=== PATIENT | male | born 1975 | race Caucasian/White ===

== ENCOUNTER 2022-03-22 12:00 | Inpatient (IN) | payer OTHER, SELFPAY ==
[2022-03-22] VITALS (25 sets, daily range): BP systolic 131–193; BP diastolic 63–133; PULSE 69–85; RESP 13–26; TEMP 36.4–36.8; O2SAT 94–99
--- NOTE | 2022-03-22 12:01 | ECG_ITS ---
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 Measurements Intervals [place] Rate: 69 P: -3 [place]: 137 QRS: 13 QRSD: 95 T: 53 QT: 351 QTc: 378 Interpretive Statements SINUS RHYTHM INTERPRETATION BASED ON A DEFAULT AGE OF 40 YEARS No previous ECG available for comparison Electronically Signed On 03-22-2022 15:19:32 DIRECTOR OF RESIDENTIAL SERVICES by Thomas Simmons M.D. [email or web address] [id number] f
--- NOTE | 2022-03-22 12:01 | XRR_ITS ---
PROCEDURE INFORMATION: Exam: XR Chest Exam date and time: 03/22/2022 12:29 PM Age: 46 years old Clinical indication: Pain; Chest pressure; Additional info: Chest pain TECHNIQUE: Imaging protocol: Radiologic exam of the chest. Views: 1 view. COMPARISON: No relevant prior studies available. FINDINGS: Lungs: Decreased lung volumes which may be due to body habitus. No consolidation. Pleural spaces: Unremarkable. No pleural effusion. No pneumothorax. Heart/Mediastinum: Cardiac silhouette is mildly enlarged on this portable chest. Bones/joints: Unremarkable for age. XR/XR chest 1V portable [id number] IMPRESSION: Mild cardiomegaly. Decreased lung volumes otherwise negative chest.
--- NOTE | 2022-03-22 12:09 | ED_ITS ---
Documented by User: BRAD Zuluaga 03/22/22 15:22 HPI - Chest Pain General: Chief Complaint: Chest Pain Stated Complaint: cp Time Seen by Provider: 03/22/22 12:00 Source: patient Mode of arrival: ambulatory Limitations: no limitations History of Present Illness: Patient is a 46-year-old male with no known medical problems here for complaints of chest pain that he initially noticed yesterday. 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 States pain was located substernally with no radiation. He states it seemed to wax and wane throughout the day and by that evening had pretty much resolved. Patient states he does not remember having any discomfort during the night and seemed to sleep okay. He states this morning when he was again feeding he noticed discomfort thus prompting his ED visit. Upon arrival to the ED vitals are stable apart from hypertension at 175/110. Patient denies history of high blood pressure though admittedly does not check it at home. He does not complain of shortness of breath or difficulty breathing currently but states he did feel a little winded when he was feeding earlier. 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 He is currently rating pain at a 3/10. No history of GERD/acid reflux. No swelling to LE/edema. No risk factors for PE. MD complaint: chest pain Onset (ago): day(s) (yesterday) Timing of current episode: episodic Prior episodes: No Pain location: substernal Pain radiation: none Severity: mild Pain scale (0-10): 3 Quality: heaviness Relieving factors: nothing Associated symptoms: Reports dyspnea (resolved now); Deny abdominal pain, fever(s), nausea, palpitations, syncope or vomiting Treatment prior to arrival: none Risk Factors: Coronary artery disease risk factors: none Thoracic aortic dissection risk factors: none Review of Systems Const: Denies: fever(s), chills, body aches, fatigue or malaise Card: Reports: chest pain and dyspnea on exertion; Denies: palpitations, irregular heart rhythm, edema, swelling of feet/ankles, lightheadedness, syncope, pre-syncope, orthopnea, leg pain with exertion or acrocyanosis Resp: Reports: dyspnea (resolved now); Denies: productive cough, non-productive cough, wheezing, pain on inspiration, hemoptysis or chest congestion GI: Denies: abdominal pain, nausea, vomiting or diarrhea Musc: Denies: neck pain, back pain, extremity pain, extremity swelling, joint pain or joint swelling Skin/Breast: Denies: rash Neuro: Denies: headache(s), numbness in extremities, weakness in extremities, sensory changes or dizziness PFS ED PFSH: Medical History (Updated 03/25/22 @ 00:00 by JOHN Morfin) Dyslipidemia Elevated troponin No pertinent past medical history Sleep apnea Surgical History (Updated 03/22/22 @ 15:34 by Osbaldo Hale MD) No pertinent past surgical history Family History (Updated 03/22/22 @ 15:35 by Osbaldo Hale MD) Mother Hypertension Father Hypertension Social History (Updated 03/22/22 @ 15:34 by Osbaldo Hale MD) Smoking and tobacco status: never smoked Alcohol intake: current Alcohol intake frequency: holidays/special occasions only Physical Exam Const: COMMON NORMALS: no acute distress, patient oriented x3, no limitations and alert GENERAL APPEARANCE: cooperative NUTRITIONAL APPEARANCE: overweight ORIENTATION/CONSCIOUSNESS: Yes awake, Yes oriented to person, Yes oriented to place and Yes oriented to time HENMT: COMMON NORMALS: normocephalic and atraumatic HEAD & SCALP: normal to inspection, normocephalic and atraumatic Neck/C-Spine: COMMON NORMALS: full ROM, no lymphadenopathy, supple and no meningeal signs Chest: COMMONS NORMALS: normal inspection of the chest and normal palpation of entire chest wall Resp: COMMON NORMALS: normal respiratory effort and clear to auscultation bilaterally AUSCULTATION: clear to auscultation bilaterally Cardio: COMMON NORMALS: regular rate and regular rhythm RATE: regular rate RHYTHM: regular rhythm GI: COMMON NORMALS: Normal to inspection, nondistended, normoactive bowel sounds present, Soft to palpation, non-tender and no masses PALPATION: Yes Soft to palpation : COMMON NORMALS: Yes no CVA tenderness BLADDER/KIDNEY EXAM: Yes no CVA tenderness Back/Pelvis: COMMON NORMALS: no CVA tenderness, thoracic and lumbar spine normal to inspection, no thoracic nor lumbar tenderness and thoraco-lumbar ROM normal Extremity: COMMON NORMALS: normal to inspection, full ROM, capillary refill normal, no joint enlargement, no clubbing, cyanosis or edema, no calf tenderness and no pedal edema GENERAL: Yes normal exam except as noted Neuro: FRANCES COMA SCALE: document GCS findings [place] coma scale eye opening: Spontaneous Frances coma scale verbal response: Orientated Frances coma scale motor response: Obey commands [place] coma scale total score: 15 COMMON NORMALS: patient oriented x3, moves all extremities, no focal motor deficits, no sensory deficits noted and gait normal SENSORIUM/ORIENTATION: Yes alert, Yes oriented to person, Yes oriented to place and Yes oriented to time MENINGEAL SIGNS: Yes no meningeal signs Skin: COMMON NORMALS: no rashes or lesions noted GENERAL SKIN EXAM: no rashes or lesions noted Course Consultations: Consultation #1: Dr. Hale-recommends speaking to Dr. Simmons about need for catheterization Consultation #2: Dr. Simmons-does not recommend cath; recommends hospital admission/medication management and eventually stress testing Vital Signs: Vital signs: Vital Signs Temperature 97.7 F 03/24/22 09:59 Pulse Rate 69 03/24/22 11:29 Respiratory Rate 23 H 03/24/22 11:29 Blood Pressure 127/67 03/24/22 11:29 Pulse Oximetry 96 03/24/22 11:29 Oxygen Delivery Me thod 03/24/22 11:29 Oxygen Flow Rate 3 03/23/22 13:03 MDM - Chest Pain Medical Decision Making Patient is a nice 46-year-old male who presents to ED today for exertional related chest pains. EKG upon arrival was normal. His initial baseline troponin is 41. Repeat EKG showing an inverted T wave in lead III. 2-hour troponin is 76 so a delta of 35. Patient arrived to the ED significantly hypertensive. This has been lowered successfully. He has been given nitro. Upon reassessment patient is not having any active chest pain. I have spoken to hospitalist and agriculture extension specialist and we will admit patient. Dr. Rodriguez aware of patient and agrees with care plan/decision to admit. Lab Data 03/22/22 12:05 03/22/22 12:05 Radiology Impressions Chest X-Ray 03/22/22 12:01 IMPRESSION: Mild cardiomegaly. Decreased lung volumes otherwise negative chest. Laboratory Results WBC 8.3 10^3/uL (4.0-10.0) 03/22/22 12:05 RBC 5.66 10^6/uL (4.1-5.3) H 03/22/22 12:05 Hgb 15.7 g/dL (11.7-16.6) 03/22/22 12:05 Hct 48.6 % (42.0-52.0) 03/22/22 12:05 MCV 85.9 fl (80-94) 03/22/22 12:05 MCH 27.7 pg (28.0-34.0) L 03/22/22 12:05 MCHC 32.3 g/dL (30.0-36.0) 03/22/22 12:05 RDW 12.5 % (12.1-15.1) 03/22/22 12:05 Plt Count 310 10^3/cmm (130-400) 03/22/22 12:05 MPV 9.8 fL (7.4-10.4) 03/22/22 12:05 Neut % (Auto) 58.7 % 03/22/22 12:05 Lymph % (Auto) 29.3 % 03/22/22 12:05 [place] % (Auto) 7.6 % 03/22/22 12:05 Eos % (Auto) 3.5 % 03/22/22 12:05 Baso % (Auto) 0.7 % 03/22/22 12:05 Neut # (Auto) 4.85 10^3/uL (1.8-7.7) 03/22/22 12:05 Lymph # (Auto) 2.4 10^3/uL (0.8-4.8) 03/22/22 12:05 [place] # (Auto) 0.6 10^3/uL (0.2-0.9) 03/22/22 12:05 Eos # (Auto) 0.3 10^3/uL (0.0-0.8) 03/22/22 12:05 Baso # (Auto) 0.1 10^3/uL (0.0-0.1) 03/22/22 12:05 Nucleated RBC % (auto) 0 % 03/22/22 12:05 Nucleated RBCs # 0.0 /100WBC 03/22/22 12:05 Sodium 136 mmol/L (136-145) 03/22/22 12:05 Potassium 4.3 mmol/L (3.5-5.1) 03/22/22 12:05 Chloride 98 mmol/L (98-107) 03/22/22 12:05 Carbon Dioxide 27 mmol/L (22-29) 03/22/22 12:05 Anion Gap 15.3 (5-19) 03/22/22 12:05 BUN 12 mg/dL (6-20) 03/22/22 12:05 Creatinine 0.9 mg/dL (0.7-1.2) 03/22/22 12:05 GFR Calculation 90.4 mL/min (90-130) 03/22/22 12:05 Glucose 102 mg/dL (65-115) 03/22/22 12:05 Calculated Osmolality 282 mOsm/kg (285-295) L 03/22/22 12:05 Calcium 9.8 mg/dL (8.5-10.5) 03/22/22 12:05 Total Bilirubin 0.3 mg/dL (0.15-1.2) 03/22/22 12:05 AST 23 U/L (0-40) 03/22/22 12:05 ALT 41 U/L (0-41) 03/22/22 12:05 Alkaline Phosphatase 80 U/L (40-130) 03/22/22 12:05 Troponin T Baseline 41 ng/L (0-15) H 03/22/22 12:05 Troponin T 120 Minute 76.26 ng/L (0-15) H 03/22/22 14:31 Delta Troponin T 35.26 ABS# (0-10) H* 03/22/22 14:31 NT-Pro-B Natriuret Pep 58 pg/mL (0-125) 03/22/22 12:05 Total Protein 7.6 g/dL (6.6-8.7) 03/22/22 12:05 Albumin 4.9 g/dL (3.5-5.2) 03/22/22 12:05 Globulin 2.7 g/dL (1.3-4.6) 03/22/22 12:05 EKG Data EKG 1: EKG interpretation date: 03/22/22 EKG interpretation time: 12:04 Prior EKG tracings: not available for review Interpretation: Sinus rhythm Rate [address] elevation or depression changes noted Discharge Plan Discharge Patient Disposition: Admitted As Inpatient Admit Provider: Osbaldo Hale Clinical Impression: Acute non-ST elevation myocardial infarction (NSTEMI) Condition: Stable Discharge Diet: Cardiac and Diabetic Discharge Activity: Increase activity as tolerated, Limit activity as instructed and Cpap/Bipap as instructed Coding Level of Care Code ED Speech Instructor for Rony Fwd Documented by User: Collins Rodriguez MD 04/01/22 02:40 HPI - Chest Pain General: Chief Complaint: Chest Pain Stated Complaint: cp Time Seen by Provider: 03/22/22 12:00 [facility] ED PFSH: Medical History (Updated 03/25/22 @ 00:00 by JOHN Morfin) Dyslipidemia Elevated troponin No pertinent past medical history Sleep apnea Surgical History (Updated 03/22/22 @ 15:34 by Osbaldo Hale MD) No pertinent past surgical history Family History (Updated 03/22/22 @ 15:35 by Osbaldo Hale MD) Mother Hypertension Father Hypertension Social History (Updated 03/22/22 @ 15:34 by Osbaldo Hale MD) Smoking and tobacco status: never smoked Alcohol intake: current Alcohol intake frequency: holidays/special occasions only Physical Exam Neuro: FRANCES COMA SCALE: document GCS findings Frances coma scale total score: 15 Course Vital Signs: Vital signs: Vital Signs Temperature 97.7 F 03/24/22 09:59 Pulse Rate 69 03/24/22 11:29 Respiratory Rate 23 H 03/24/22 11:29 Blood Pressure 127/67 03/24/22 11:29 Pulse Oximetry 96 03/24/22 11:29 Oxygen Delivery Me thod 03/24/22 11:29 Oxygen Flow Rate 3 03/23/22 13:03 MDM - Chest Pain Medical Decision Making Patient is a nice 46-year-old male who presents to ED today for exertional related chest pains. EKG upon arrival was normal. His initial baseline troponin is 41. Repeat EKG showing an inverted T wave in lead III. 2-hour troponin is 76 so a delta of 35. Patient arrived to the ED significantly hypertensive. This has been lowered successfully. He has been given nitro. Upon reassessment patient is not having any active chest pain. I have spoken to hospitalist and agriculture extension specialist and we will admit patient. Dr. Rodriguez aware of patient and agrees with care plan/decision to admit. I discussed this case with BRAD Zuluaga. I reviewed laboratory studies, i shantal, documentation. Collins Rodriguez MD Emergency Medicine Lab Data 03/22/22 12:05 03/22/22 12:05 Radiology Impressions Chest X-Ray 03/22/22 12:01 IMPRESSION: Mild cardiomegaly. Decreased lung volumes otherwise negative chest. Laboratory Results WBC 8.3 10^3/uL (4.0-10.0) 03/22/22 12:05 RBC 5.66 10^6/uL (4.1-5.3) H 03/22/22 12:05 Hgb 15.7 g/dL (11.7-16.6) 03/22/22 12:05 Hct 48.6 % (42.0-52.0) 03/22/22 12:05 MCV 85.9 fl (80-94) 03/22/22 12:05 MCH 27.7 pg (28.0-34.0) L 03/22/22 12:05 MCHC 32.3 g/dL (30.0-36.0) 03/22/22 12:05 RDW 12.5 % (12.1-15.1) 03/22/22 12:05 Plt Count 310 10^3/cmm (130-400) 03/22/22 12:05 MPV 9.8 fL (7.4-10.4) 03/22/22 12:05 Neut % (Auto) 58.7 % 03/22/22 12:05 Lymph % (Auto) 29.3 % 03/22/22 12:05 [place] % (Auto) 7.6 % 03/22/22 12:05 Eos % (Auto) 3.5 % 03/22/22 12:05 Baso % (Auto) 0.7 % 03/22/22 12:05 Neut # (Auto) 4.85 10^3/uL (1.8-7.7) 03/22/22 12:05 Lymph # (Auto) 2.4 10^3/uL (0.8-4.8) 03/22/22 12:05 [place] # (Auto) 0.6 10^3/uL (0.2-0.9) 03/22/22 12:05 Eos # (Auto) 0.3 10^3/uL (0.0-0.8) 03/22/22 12:05 Baso # (Auto) 0.1 10^3/uL (0.0-0.1) 03/22/22 12:05 Nucleated RBC % (auto) 0 % 03/22/22 12:05 Nucleated RBCs # 0.0 /100WBC 03/22/22 12:05 Sodium 136 mmol/L (136-145) 03/22/22 12:05 Potassium 4.3 mmol/L (3.5-5.1) 03/22/22 12:05 Chloride 98 mmol/L (98-107) 03/22/22 12:05 Carbon Dioxide 27 mmol/L (22-29) 03/22/22 12:05 Anion Gap 15.3 (5-19) 03/22/22 12:05 BUN 12 mg/dL (6-20) 03/22/22 12:05 Creatinine 0.9 mg/dL (0.7-1.2) 03/22/22 12:05 GFR Calculation 90.4 mL/min (90-130) 03/22/22 12:05 Glucose 102 mg/dL (65-115) 03/22/22 12:05 Calculated Osmolality 282 mOsm/kg (285-295) L 03/22/22 12:05 Calcium 9.8 mg/dL (8.5-10.5) 03/22/22 12:05 Total Bilirubin 0.3 mg/dL (0.15-1.2) 03/22/22 12:05 AST 23 U/L (0-40) 03/22/22 12:05 ALT 41 U/L (0-41) 03/22/22 12:05 Alkaline Phosphatase 80 U/L (40-130) 03/22/22 12:05 Troponin T Baseline 41 ng/L (0-15) H 03/22/22 12:05 Troponin T 120 Minute 76.26 ng/L (0-15) H 03/22/22 14:31 Delta Troponin T 35.26 ABS# (0-10) H* 03/22/22 14:31 NT-Pro-B Natriuret Pep 58 pg/mL (0-125) 03/22/22 12:05 Total Protein 7.6 g/dL (6.6-8.7) 03/22/22 12:05 Albumin 4.9 g/dL (3.5-5.2) 03/22/22 12:05 Globulin 2.7 g/dL (1.3-4.6) 03/22/22 12:05 Discharge Plan Discharge Patient Disposition: Admitted As Inpatient Admit Provider: Osbaldo Hale Clinical Impression: Acute non-ST elevation myocardial infarction (NSTEMI) Condition: Stable Discharge Diet: Cardiac and Diabetic Discharge Activity: Increase activity as tolerated, Limit activity as instructed and Cpap/Bipap as instructed Coding Level of Care Code ED Speech Instructor for Rony Palacios
[2022-03-22 12:13] LABS: Basophils # 0.1 10^3/uL (0.0-0.1); Basophils % 0.7 %; Eosinophils # 0.3 10^3/uL (0.0-0.8); Eosinophils % 3.5 %; Hematocrit 48.6 % (42.0-52.0); Hemoglobin 15.7 g/dL (11.7-16.6); Lymphocytes # 2.4 10^3/uL (0.8-4.8); Lymphocytes % 29.3 %; Mean Corpuscular HGB Conc 32.3 g/dL (30.0-36.0); Mean Corpuscular Hemoglobin 27.7 pg (28.0-34.0); Mean Corpuscular Volume 85.9 fl (80-94); Mean Platelet Volume 9.8 fL (7.4-10.4); Monocytes # 0.6 10^3/uL (0.2-0.9); Monocytes % 7.6 %; Neutrophils # 4.85 10^3/uL (1.8-7.7); Neutrophils % 58.7 %; Nucleated Red Blood Cells % 0 %; Platelet Count 310 10^3/cmm (130-400); Red Blood Count 5.66 10^6/uL (4.1-5.3); Red Cell Distribution Width 12.5 % (12.1-15.1); White Blood Count 8.3 10^3/uL (4.0-10.0)
[2022-03-22] MEDS: hyDRALAzine 20 mg/mL INJ 1 mL 10 MG IVP (12:16)
[2022-03-22 12:38] LABS: Troponin(5th) Baseline 41 ng/L (0-15)
[2022-03-22 12:39] LABS: Alanine Aminotransferase 41 U/L (0-41); Albumin Level 4.9 g/dL (3.5-5.2); Alkaline Phosphatase 80 U/L (40-130); Anion Gap 15.3 (5-19); Aspartate Amino Transferase 23 U/L (0-40); Blood Urea Nitrogen 12 mg/dL (6-20); Calcium 9.8 mg/dL (8.5-10.5); Carbon Dioxide 27 mmol/L (22-29); Chloride 98 mmol/L (98-107); Globulin 2.7 g/dL (1.3-4.6); Glomerular Filtration Rate 90.4 mL/min (90-130); Glucose 102 mg/dL (65-115); Osmolality Calculated 282 mOsm/kg (285-295); Potassium 4.3 mmol/L (3.5-5.1); Sodium 136 mmol/L (136-145); Total Bilirubin 0.3 mg/dL (0.15-1.2); Total Protein 7.6 g/dL (6.6-8.7)
[2022-03-22] MEDS: aspirin 81 mg Chew Tablet 324 MG PO (13:20)
[2022-03-22] MEDS: nitroglycerin 0.4 mg sublingual Tablet SUBLINGUAL (13:20)
[2022-03-22 13:32] LABS: NT Pro B Type Natriuretic Pept 58 pg/mL (0-125)
--- NOTE | 2022-03-22 14:01 | ECG_ITS ---
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 Measurements Intervals [place] Rate: 67 P: -12 VT: 137 QRS: 2 QRSD: 110 T: 9 QT: 376 QTc: 399 Interpretive Statements SINUS RHYTHM Compared to ECG 03/22/2022 14:16:30 No significant changes Electronically Signed On 03-23-2022 8:42:13 NURSE EMERGENCY ROOM by Thomas Simmons M.D. [id number]
[2022-03-22 14:56] LABS: Troponin 5 2HR 76.26 ng/L (0-15)
[2022-03-22 15:05] LABS: Troponin 5 2HR Delta 35.26 ABS# (0-10)
--- NOTE | 2022-03-22 15:30 | USCV_ITS ---
Ibrahima Pederson Age: 46 Gender: M : 1975 Exam Date: 03/22/2022 15:52 Ordering Phys: Osbaldo Hale MD Technologist: WALTER [place] [facility] [place]: nstemi BP: / HR: 82 Rhythm: Sinus Technical Quality: Suboptimal MEASUREMENTS (Male / Female) Normal Values 2D ECHO LV Diastolic Diameter PLAX 5.8 cm 4.2 - 5.9 / 3.9 - 5.3 cm LV Systolic Diameter PLAX 4.5 cm IVS Diastolic Thickness 0.7 cm 0.6 - 1.0 / 0.6 - 0.9 cm IVS Systolic Thickness 1.0 cm LVPW Diastolic Thickness 0.8 cm 0.6 - 1.0 / 0.6 - 0.9 cm LVPW Systolic Thickness 1.0 cm LVOT Diameter 2.3 cm LV Ejection Fraction 2D Teich 41.9 % LV Ejection Fraction MOD 2C 64.3 % LV Ejection Fraction 2C AL 64.2 % LA Diameter 4.2 cm IVC Diameter 1.4 cm M-MODE Aortic Annulus Diameter 2.7 cm LA Ao Ratio MM 1.6 MV E Point Septal Separation 0.6 cm DOPPLER AV Peak Velocity 123.0 cm/s LVOT Peak Velocity 105.0 cm/s AV Area Cont Eq vti 3.5 cm squared AV Area Cont Eq pk 3.4 cm squared MV Area PHT 3.9 cm squared Mitral E to A Ratio 0.9 MV E' Velocity 53.0 cm/s Mitral E to MV E' Ratio 13.8 Mitral E to LV E' Lateral Ratio 12.3 Mitral E to LV E' Septal Ratio 16.1 TR Peak Velocity 150.0 cm/s TR Peak Gradient 9.0 mmHg Right Atrial Pressure 3.0 mmHg Pulmonary Artery Systolic Pressu 12.0 mmHg PV Peak Velocity 108.0 cm/s FINDINGS Left Ventricle Normal left ventricular size, systolic function and wall thickness, with no regional wall motion abnormalities. Normal left ventricular wall thickness. Normal diastolic filling pattern. Right Ventricle The right ventricle is normal in size and function. Normal right ventricular systolic pressure. Right Atrium The right atrium is normal in size. Left Atrium The left atrium is normal in size. Mitral Valve Structurally normal mitral valve without significant stenosis or prolapse. There is no mitral regurgitation. Aortic Valve Structurally normal aortic valve without significant sclerosis or stenosis. There is no aortic regurgitation. Tricuspid Valve Structurally normal tricuspid valve without significant stenosis or regurgitation. Pulmonary artery systolic pressure is normal. Pulmonic Valve Pulmonic valve not well visualized. Pericardium Normal pericardium without effusion. Aorta Normal ascending aorta dimension. IVC The inferior vena cava appears normal. CONCLUSIONS Normal transthoracic echocardiogram. There are no prior echocardiogram studies to compare. Dr. Thomas Simmons MD (Electronically Signed) Final Date: 23 March 2022 08:33 S
--- NOTE | 2022-03-22 15:30 | PM.HP ---
Providers/Chief Complaint Chief Complaint: cp History of Present Illness Ibrahima Pederson is a 46 year old male with no significant past medical history, who presents to [facility] due to a 2-day history of chest pain. 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 He was given nitroglycerin, on route with improvement of his chest pain. Currently chest pain-free, work-up in the emergency room showed EKG no acute ST-T wave changes, troponin baseline was 41 with a 120-minute of 76.26 and a positive delta of 35.26, ER provider spoke to cardiology, no acute need for cardiac catheterization, hospitalist team was called for admission. During my examination patient is hypertensive blood pressure is 150s over 90s, heart rates in the 60s, 90% on room air alert oriented x3, currently chest pain-free Review of Systems Const: Denies: fever(s), fatigue or malaise Eyes: Denies: change in vision Card: Reports: chest pain Resp: Reports: dyspnea GI: Denies: abdominal pain, nausea or vomiting : Denies: flank pain Musc: Denies: neck pain or back pain Neuro: Denies: headache(s) or numbness in extremities Psych: Denies: anxiety Endo: Denies: polyuria Medications/Allergies Home Medications Medication Instructions Recorded Confirmed Last Taken Type No Known Home Medications 03/22/22 03/22/22 Unknown History Allergies Allergy/AdvReac Type Severity Reaction Status Date / Time No Known Allergies Allergy Verified 03/22/22 12:32 PFSH Acute PFSH: Medical History (Updated 03/22/22 @ 15:37 by Osbaldo Hale MD) No pertinent past medical history Surgical History (Updated 03/22/22 @ 15:34 by Osbaldo Hale MD) No pertinent past surgical history Family History (Updated 03/22/22 @ 15:35 by Osbaldo Hale MD) Mother Hypertension Father Hypertension Social History (Updated 03/22/22 @ 15:34 by Osbaldo Hale MD) Smoking and tobacco status: never smoked Alcohol intake: current Alcohol intake frequency: holidays/special occasions only Substance/Drug Use: never Vitals/I&O/Wt Last Vital Signs Temp 98.3 F 03/22/22 12:10 Pulse 76 03/22/22 15:00 Resp 13 03/22/22 15:00 BP 147/93 03/22/22 15:00 Pulse Ox 96 03/22/22 15:00 O2 Del Method 03/22/22 12:04 Weight last 48 hrs Weight 113.398 kg Physical Exam Const: COMMON NORMALS: no acute distress and patient oriented x3 HENMT: COMMON NORMALS: normocephalic HEAD & SCALP: normocephalic Eye: COMMON NORMALS: Equal, round and reactive pupils present and EOMs intact bilaterally Neck/C-Spine: COMMON NORMALS: no JVD Lymph: LYMPHATIC: no lymphadenopathy noted Resp: COMMON NORMALS: normal respiratory effort, No retractions, No use of accessory muscles and clear to auscultation bilaterally AUSCULTATION: clear to auscultation bilaterally Cardio: COMMON NORMALS: no JVD, regular rate, regular rhythm, S1 normal heart sound present and S2 normal heart sound present RATE: regular rate RHYTHM: regular rhythm HEART SOUNDS: S1 normal heart sound present and S2 normal heart sound present GI: COMMON NORMALS: Normal to inspection, nondistended, normoactive bowel sounds present, Soft to palpation, non-tender and no masses PALPATION: Yes Soft to palpation and Yes No hepatosplenomegaly present Extremity: COMMON NORMALS: no calf tenderness and no pedal edema Neuro: COMMON NORMALS: patient oriented x3, CN's II-XII intact bilaterally, moves all extremities and no focal motor deficits Psych: COMMON NORMALS: mental status grossly normal Data 03/22/22 12:05 03/22/22 12:05 A&P Assessment and plan (1) Acute non-ST elevation myocardial infarction (NSTEMI): (2) Hypertension: (3) Chest pain: (4) Goals of care, counseling/discussion: (5) Obesity: Plan Chest pain, NSTEMI Plan -Serial EKGs, serial troponins, telemetry monitoring -Monitor troponin trend -Nitro as needed for chest pain -Urine toxicology screen, TSH, mag, BMP -Cardiac echo -Continue Coreg for hypertension -Aspirin, statin -Heparin drip -Watch troponin trend, if it continues to go up or patient has recurrent chest pain, will need to again discuss with cardiology the possibility of coronary angiogram -Full code -SCDs and heparin for DVT prophylaxis Attestations Medical Necessity Statement*: Patient requires hospitalization, inpatient, greater than 2 minutes, for chest pain, NSTEMI Coding Level of Care Code 75134 Diagnoses Acute non-ST elevation myocardial infarction (NSTEMI) I21.4 Hypertension I10 Chest pain R07.9 Goals of care, counseling/discussion Z71.89 Obesity E66.9
[2022-03-22 16:58] LABS: Platelet Count 304 10^3/cmm (130-400)
[2022-03-22 17:30] LABS: Chol HDL Ratio 6.98 mg/dL (1.0-5.00); Cholesterol 279 mg/dL (0-200); HDL Cholesterol 40 mg/dL (60-100); LDL Cholesterol Calculated 213 mg/dL (50-129); LDL HDL Ratio 5.33 RATIO (0.00-3.22); NT Pro B Type Natriuretic Pept 76 pg/mL (0-125); Thyroid Stimulating Hormone 0.82 uIU/mL (0.27-4.20); Triglycerides 130 mg/dL (0-150)
[2022-03-22 17:43] LABS: Estmated Average Glucose 128; Hemoglobin A1C 6.1 % (4.0-6.0)
--- NOTE | 2022-03-22 18:01 | ECG_ITS ---
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 Measurements Intervals [place] Rate: 71 P: 21 VA: 143 QRS: 12 QRSD: 95 T: 9 QT: 359 QTc: 390 Interpretive Statements SINUS RHYTHM Compared to ECG 03/22/2022 12:04:24 No significant changes Electronically Signed On 03-22-2022 15:20:09 PHYSICS PROFESSOR by Thomas Simmons M.D. [id number]
[2022-03-22 18:34] LABS: Troponin 5 6HR 47.55 ng/L (0-15); Troponin 5 6HR Delta 6.55 ng/L (0-12)
[2022-03-22] MEDS: carvedilol 3.125 mg Tablet PO (18:50)
[2022-03-22 19:07] LABS: Amphetamines Screen Urine Negative (Negative); Barbiturates Screen Urine Negative (Negative); Benzodiazepines Screen Urine Negative (Negative); Cocaine Screen Urine Negative (Negative); Opiate Screen Urine Negative (Negative); PCP Screen Urine Negative (Negative); THC Screen Urine Negative (Negative)
[2022-03-22] MEDS: atorvastatin 40 mg Tablet PO (20:50)
[2022-03-22] MEDS: heparin 5,000 unit/mL INJ 1 mL IV (22:02)
[2022-03-22] MEDS: heparin drip 25,000 UNIT/500 ML PREMIX 32 UNIT IV (22:03)
[2022-03-22 22:33] LABS: Troponin T (5th) Once 44 ng/L (0-15)
[2022-03-23] VITALS (46 sets, daily range): BP systolic 101–183; BP diastolic 67–111; PULSE 7–95; RESP 12–25; TEMP 36.6–37.3; O2SAT 90–98
[2022-03-23 04:40] LABS: Basophils # 0.1 10^3/uL (0.0-0.1); Basophils % 0.8 %; Eosinophils # 0.4 10^3/uL (0.0-0.8); Eosinophils % 4.5 %; Hematocrit 46.2 % (42.0-52.0); Hemoglobin 14.6 g/dL (11.7-16.6); Lymphocytes # 3.1 10^3/uL (0.8-4.8); Lymphocytes % 35.2 %; Mean Corpuscular HGB Conc 31.6 g/dL (30.0-36.0); Mean Corpuscular Hemoglobin 27.3 pg (28.0-34.0); Mean Corpuscular Volume 86.5 fl (80-94); Mean Platelet Volume 9.8 fL (7.4-10.4); Monocytes # 0.8 10^3/uL (0.2-0.9); Neutrophils # 4.37 10^3/uL (1.8-7.7); Neutrophils % 50.2 %; Nucleated Red Blood Cells % 0 %; Platelet Count 306 10^3/cmm (130-400); Red Blood Count 5.34 10^6/uL (4.1-5.3); Red Cell Distribution Width 12.7 % (12.1-15.1); White Blood Count 8.7 10^3/uL (4.0-10.0)
[2022-03-23 05:03] LABS: Troponin T (5th) Once 41 ng/L (0-15)
[2022-03-23 05:06] LABS: Partial Thromboplastin Time 108.6 SECONDS (23.9-36.7)
[2022-03-23 05:09] LABS: Anion Gap 15.9 (5-19); Blood Urea Nitrogen 12 mg/dL (6-20); Carbon Dioxide 25 mmol/L (22-29); Chloride 98 mmol/L (98-107); Glomerular Filtration Rate 90.4 mL/min (90-130); Glucose 105 mg/dL (65-115); Magnesium 1.9 mg/dL (1.7-2.3); Osmolality Calculated 280 mOsm/kg (285-295); Phosphorus 3.8 mg/dL (2.5-4.5); Potassium 3.9 mmol/L (3.5-5.1); Sodium 135 mmol/L (136-145)
--- NOTE | 2022-03-23 08:18 | PM.CONSULT ---
Providers/Reason For Consult Consulting Physician/Specialty*: Cardiovascular medicine Reason for Consult*: Chest discomfort, elevated troponin Requesting Physician: Hospitalist Attending Physician: Osbaldo Hale MD History of Present Illness History of Present Illness Ibrahima Pederson is a 46 year old male who has no known history of coronary artery disease or heart disease. 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 He developed the sensation in his chest that he thought was heartburn. It was substernal and a burning sensation. No radiation, no shortness of breath and no diaphoresis. It went away after he stopped. The next day he was playing in a [employer] tournament and in mid tournament he had the sensation again. It went away after he finished. 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 He came in to the hospital. Upon his arrival he was free of pain. His EKGs are completely normal. His troponin was 41. The second was 76 and the third 47. His chest x-ray shows mild cardiomegaly. He is not a smoker. He is mildly overweight. He has hyperlipidemia and sleep apnea. He was hypertensive when he arrived. He has been placed on aspirin, statin, heparin, carvedilol. Review of Systems Narrative: Review of systems is negative Medications/Allergies Home Medications Medication Instructions Recorded Confirmed Last Taken Type No Known Home Medications 03/22/22 03/22/22 Unknown History Allergies Allergy/AdvReac Type Severity Reaction Status Date / Time No Known Allergies Allergy Verified 03/22/22 12:32 Current Medications Generic Name Dose Route Start Last Admin Trade Name Freq PRN Reason Stop Dose Admin Atorvastatin Calcium 40 mg 03/22/22 21:00 03/22/22 20:50 Atorvastatin 40 Mg Tablet PO 40 mg BEDTIME GIUSEPPE Administration Carvedilol 3.125 mg 03/22/22 18:00 03/22/22 18:50 Carvedilol 3.125 Mg Tablet PO 3.125 mg BID GIUSEPPE Administration Heparin Sodium (Porcine) 0 unit 03/22/22 16:00 03/22/22 22:02 Heparin 5,000 Unit/Ml Inj 1 Ml IV 5,800 unit PRN PRN Administration Heparin weight-base protocol Protocol Heparin Sodium/Sodium Chloride 25,000 unit in 500 mls @ 0 mls/hr 03/22/22 16:00 03/23/22 05:10 Heparin Drip IV 11.46 unit/kg/hr .Q0M GIUSEPPE 26 mls/hr Titration Protocol Per Protocol PFSH Acute PFSH: Medical History (Updated 03/23/22 @ 08:22 by Thomas Simmons MD) Dyslipidemia Elevated troponin No pertinent past medical history Sleep apnea Surgical History (Updated 03/22/22 @ 15:34 by Osbaldo Hale MD) No pertinent past surgical history Family History (Updated 03/22/22 @ 15:35 by Osbaldo Hale MD) Mother Hypertension Father Hypertension Social History (Updated 03/22/22 @ 15:34 by Osbaldo Hale MD) Smoking and tobacco status: never smoked Alcohol intake: current Alcohol intake frequency: holidays/special occasions only Substance/Drug Use: never Vitals/I&O/Wt Last Vital Signs Temp 98.3 F 03/23/22 04:00 Pulse 76 03/23/22 07:38 Resp 16 03/23/22 07:38 BP 130/67 03/23/22 07:38 Pulse Ox 98 03/23/22 07:38 O2 Del Method 03/23/22 07:38 03/22/22 03/23/22 03/23/22 22:59 06:59 14:59 Intake Total 227.733 / 227.733 Balance 227.733 / 227.733 Weight last 48 hrs Weight 256 lb 9.6 oz Weight 250 lb Physical Exam Narrative: GENERAL: In general he is awake and alert free of pain and in no distress. HEENT: Exam within normal limits. NECK: Supple without jugular vein distention. The carotid upstroke is normal without bruits. BACK: Exam normal. LUNGS: Clear. HEART: Regular rate and rhythm. ABDOMEN: Benign without organomegaly or tenderness. EXTREMITIES: No edema. NEUROLOGIC: Exam normal. SKIN: Unremarkable. Data 03/23/22 04:15 03/23/22 04:15 A&P Assessment and plan (1) Obesity: (2) Chest pain: (3) Hypertension: (4) Dyslipidemia: (5) Sleep apnea: (6) Elevated troponin: Plan The discomfort he is having is suspicious. His EKGs are completely normal however. There is only a minimal troponin elevation. He does have risk factors of hypertension and dyslipidemia. I think all things considered, especially given his line of work, coronary angiography is indicated to figure out whether he has coronary disease or not. Consult Attestations Medical Necessity Statement: Hospitalization for management of chest pain and elevated troponin. and Low Time for a total of Total time in patient care (in minutes): 25 minutes, includes reviewing past or interval history, examining/interviewing patient, placing orders, counseling patient/family/other support, discussing plan of care with staff and communicating with other healthcare providers Other Coding Information Procedural care (documented in another note) Diagnoses Obesity E66.9 Chest pain R07.9 Hypertension I10 Dyslipidemia E78.5 Sleep apnea G47.30 Elevated troponin R77.8
[2022-03-23] MEDS: pantoprazole DR 40 mg Tablet PO (08:41)
[2022-03-23] MEDS: sodium chloride 0.9% 1,000 ML 50 ML IV (08:55)
[2022-03-23] MEDS: carvedilol 3.125 mg Tablet PO (08:56)
[2022-03-23] MEDS: diphenhydrAMINE 50 mg Capsule PO (08:56)
--- NOTE | 2022-03-23 09:36 | XACV_ITS ---
Exam Room: [facility] Ht: 173 cm Wt: 117 kg BSA: 2.42 m2 Gender: Male : 1975 Any Known Allergies: No known allergies Exam Priority: Routine Procedure(s): Procedure Description: Diagnostic procedure Procedure Description: PCI procedure Procedure Description: Left Heart Catheterization Procedure Description: Left ventriculography Procedure Description: PTCA Procedure Description: Coronary Angiography Iris STAHL; Diagnostic Cath Status: Urgent Diagnostic Findings * Typical chest discomfort associated with exercise. Minimal troponin elevation. Hypertension and dyslipidemia. * Coronary angiography reveals left coronary artery dominance. The left main coronary artery is normal. The left anterior descending is a relatively small vessel and contains mild to moderate diffuse disease. The first diagonal is a moderate to large sized vessel with a 95% lengthy stenosis from the ostium through the proximal portion. The circumflex is the dominant vessel and contains mild diffuse disease. There is a small marginal branch distally which would be the third or fourth marginal branch which contains a 70 to 80% stenosis in its proximal portion. This is a very small vessel. The right coronary artery is a nondominant vessel and contains mild diffuse luminal irregularities. There is also a ramus intermedius artery which contains moderate to severe diffuse disease.. PCI Status: Urgent PCI LVEF Assessed: Yes PCI Indication: NSTE - ACS Interventional Findings * The first diagonal branch underwent angioplasty with some difficulty due to guide placement. I was unable to stent this vessel due to its proximity to the LAD. The other vessels did not undergo angioplasty due to the fact that they are quite small. The patient was hypertensive during the examination and procedure. There was some chest pain as well. Decision for PCI with Surgical Consult: No PCI for Multi-vessel Disease: No Conclusions 1. Diffuse disease mainly small vessel disease and branch artery disease. Angioplasty of the first diagonal branch. Recommendations * Aggressive risk factor control with blood pressure lowering and high-dose statin therapy. Interventional RX Recommendation: PCI w/o planned CABG Diagnostic RX Recommendation: PCI w/o planned CABG Anticoagulation: Heparin Ventriculography Ejection Fraction: 60.0 % Pressures Phase:Rest AO : 112 / 84 ( 99 ) @ 10:17:00 AM 97 / 72 ( 85 ) @ 10:19:00 AM 104 / 75 ( 89 ) @ 10:21:00 AM 143 / 81 ( 109 ) @ 10:26:00 AM 145 / 83 ( 111 ) @ 10:26:00 AM 165 / 96 ( 121 ) @ 10:38:00 AM 132 / 85 ( 107 ) @ 10:41:00 AM 137 / 88 ( 111 ) @ 10:46:00 AM 149 / 83 ( 110 ) @ 10:51:00 AM 148 / 86 ( 115 ) @ 10:55:00 AM LV : 170 / 4 / 23 @ 10:25:00 AM 160 / 3 / 30 @ 10:25:00 AM 155 / 3 / 28 @ 10:26:00 AM 157 / 1 / 27 @ 10:26:00 AM Valves Phase:DefaultPhase AV : 16.0 @ 11:08:58 AM 16.0 @ 11:08:58 AM AV Mean Gradient: 14.0 @ 11:08:58 AM Clinical Evaluation EBL: 5mL-10mL Procedural Details Pre-Procedure Time Out. Identified patient by full name and date of as verbalized by the patient/guarantor. Does the consent match the physician's order: Yes. Accurate & Complete Informed Consent: Yes. Inpatient/Outpatient History & Physical on Chart: Yes. If H&P is completed, is and addenduem needed: Yes; If yes, is the addendum complete: N/A. Visualize and Verify Site with Patient/Guarantor: N/A. Relevant Radiology Images available: Yes. Pre-op teaching completed and patient verbalized understanding. The risks, benefits, and alternatives of sedation and/or procedure were discussed by physician. The patient agrees to continue. Procedure started. [facility] Clinical Fraility Score: 3: Managing Well. Incident Commander Indications: ACS > 24 hours. Chest Pain Symptom Assessment: Atypical Angina. Current diagnosis: NSTEMI. PERRLA. 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 Lungs clear x 5 lobes. IV Site on Arrival: 18 gauge in the right anticubital. Current Diagnosis : NSTEMI. Physician arrived. Physician scrubbed in. Immediate Pre-Procedure Time Out. Correct Patient: Yes; Correct Procedure: Yes; Correct Site: Yes; Correct Patient Position: Yes; Correct Supplies: Yes; Dried Flammable Prep: Yes; Blood Products Available: N/A;. Lidocaine 1% infiltrated to the right radial. Arterial access obtained. A 6 uzbek TIG catheter in over wire. Multiple views taken of left coronary artery. Catheter redirected to the RCA. Multiple views taken of right coronary artery. Catheter out. A 6 uzbek Angled Pig catheter in over wire. EDP Sample taken: LV 170/4,23; HR: 61 BPM; SpO2: 98%. EDP Sample taken: LV 160/3,30; HR: 76 BPM; SpO2: 98%. LV gram performed in [place] @ 10 mL/second for a total of 30 mL. EDP Sample taken: LV 155/3,28; HR: 71 BPM; SpO2: 98%. Pullback taken: LV 157/1,27; AO 143/81(109); Mean: 14mmHg, Peak to Peak: 16mmHg, SEP: 21sec/min; HR: 74 BPM; SpO2: 98%. Catheter out. Family updated. 6 uzbek XB 3.5 guide catheter was inserted over the wire. Wire out. Glidewire inserted. [place] inserted and advanced to the diaganol. AB Trek 2.5x20mm balloon inserted and advanced to the Diag. Balloon and wire out. [place] inserted and advanced to the diaganol. Wire out. A new [place] wire inserted and advanced to the Diag. Patient's family updated. Inflation number : 1 A AB TREK 2.50X20 RX BALLOON was prepped and advanced across the 1st Diag , then inflated to 8 ALEJANDRO for 0:34 seconds. Results checked. Balloon out. Wire out. Guide catheter out. A TR Band was successful obtaining hemostatsis at the Right Radial artery insertion site. Post Procedure: Pulses reassessed and unchanged. PERRLA. 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 No VTE prophylaxis required. Medication's Wasted: Lidocaine 1% = 1 mL. Medication's Wasted: Nitro = 49.8 mg. Medication's Wasted: Heparin = 1000 units. Medication's Wasted: Other = Versed 1 mg Fentanyl 25mcg. Total IV fluids: 75 mL. Complications: None. Estimated blood loss: 5mL-10mL. Responsiveness - Normal response to verbal stimuli; alert and oriented, PERRLA. Airway - Unaffected, no intervention required; spontaneous ventilation. Circulation: W/N/L, pulses unchanged. Nausea/Vomiting: No. Vital chart was stopped. Procedure completed. Patient transferred by bed to 1st floor. Access Site Site: Right Radial artery Sheath Size: 6 Fr Hemostasis Method: TR Band Hemostasis Success: Successful Procedure Medications Start: 10:01 AM Stop: 10:01 AM Medication: Versed Amount: 1 mg Route: I.V. Start: 10:01 AM Stop: 10:01 AM Medication: Fentanyl Amount: 50 mcg Route: I.V. Start: 10:10 AM Stop: 10:10 AM Medication: Nitrogylcerin Amount: 200 mcg Route: I.A. Start: 10:12 AM Stop: 10:12 AM Medication: Versed 1 mg and Fentanyl 25 mcg Amount: 1 Route: I.V. Start: 10:15 AM Stop: 10:15 AM Medication: Heparin Amount: 5000 units Route: I.V. Start: 11:01 AM Stop: 11:01 AM Medication: Plavix Amount: 600 mg Route: P.O. I, the attending physician, have reviewed and verified all procedure medications. Yes, all medications given per verbal order History/Risk Factors Hypertension: Yes Dyslipidemia: Yes Peripheral Arterial Disease (PAD): No Myocardial Infarction (SC): No Obesity: Yes Renal Disease: No Tobacco Use: Never Prior Interventions PCI: No CABG: No Valve Surgery: No Report Signatures Finalized by Dr. Thomas Simmons MD on 03/23/2022 11:28 AM
[2022-03-23] MEDS: hyDRALAzine 20 mg/mL INJ 1 mL 10 MG IVP ×2 (11:40→12:42)
--- NOTE | 2022-03-23 12:05 | PM.MISC ---
Miscellaneous Note Note: Patient recently underwent coronary angiography and an angioplasty of the first diagonal branch was performed. He also has mild to moderate diffuse disease of the ramus intermedius artery as well as the very distal obtuse marginal branch. Upon his return to the floor from the coronary angiogram the patient's blood pressure spiked to 220/110. He then began to have chest pain. I gave him 10 mg of hydralazine about 15 minutes ago. Another twelve-lead EKG now shows some minimal ST segment depression in leads V1 as well as ST depression and some T wave inversion in leads III and aVF. My suspicion is that he has become so hypertensive that he is mildly diffusely ischemic in these areas. I have ordered for him to be started on intravenous nitroglycerin to decrease his blood pressure and relieve the angina. We will need to get a better handle on the blood pressure. I am going to order some morphine for the pain and hydralazine every 6 hours as needed for blood pressure. Additionally I am going to switch him over to metoprolol from carvedilol. We will follow him along today to relieve the discomfort. Other Coding Information Procedural care (documented in another note)
[2022-03-23] MEDS: morphine 4 mg/mL SDV 1 mL 2 MG IVP ×2 (12:42→20:41)
[2022-03-23 13:10] LABS: Partial Thromboplastin Time 39.9 SECONDS (23.9-36.7)
--- NOTE | 2022-03-23 13:14 | ECG_ITS ---
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 Measurements Intervals [place] Rate: 67 P: 36 WV: 149 QRS: 32 QRSD: 98 T: 72 QT: 389 QTc: 411 Interpretive Statements SINUS RHYTHM MARKED ST ELEVATION, CONSIDER INFERIOR INJURY [MARKED ST ELEVATION W/O NORMALLY INFLECTED T-WAVE IN II/aVF] ACUTE CA Compared to ECG 03/22/2022 16:31:28 ST (T wave) deviation now present Myocardial infarct finding now present Electronically Signed On 03-24-2022 11:23:58 SOURCING CONSULTANT by Carlton Jean M.D. [id number] f
--- NOTE | 2022-03-23 13:38 | PM.MISC ---
Miscellaneous Note Note: Bring in his blood pressure down with IV nitroglycerin and hydralazine the patient continued to have chest pain. An EKG just a few minutes ago now shows ST segment elevation inferiorly. That is opposite of the region that underwent angioplasty recently. His pain is significant. We will take him back to the cardiac catheterization laboratory immediately. I have updated his family. Other Coding Information Procedural care (documented in another note)
--- NOTE | 2022-03-23 13:49 | XACV_ITS ---
Exam Room: [facility] Ht: 173 cm Wt: 117 kg BSA: 2.42 m2 Gender: Male : 1975 Any Known Allergies: No known allergies Exam Priority: Routine Procedure(s): Procedure Description: PCI procedure Procedure Description: Drug Eluting Coronary Stent Procedure Description: PTCA Iris STAHL; Diagnostic Cath Status: Emergency Diagnostic Findings * Patient underwent angiography earlier today and had an angioplasty of the second diagonal branch. This was a fairly large vessel. He also has diffuse disease elsewhere. Shortly after arriving back to the floor he had hypertension with blood pressure of 230/120 then developed chest pain. Initial EKG showed some ST segment depression but no elevation. There were new findings in the inferior leads. I started him on hydralazine as necessary and nitroglycerin drip for his blood pressure. About 2 hours later he developed worsening chest pain. An EKG at that time showed ST segment elevation in the inferior leads. Therefore, he was brought back to the catheterization laboratory. * Angiography this time revealed a normal left main. He has a codominant system. The circumflex contains mild to moderate diffuse disease. In the very third most distal obtuse marginal branch which is a small vessel there is a 85 to 90% discrete stenosis. The ramus intermedius artery contains mild to moderate diffuse disease. The first diagonal contains 2 lesions in the proximal portion 150% and the other 70%. The diagonal branch intervened upon which is a second diagonal was closed at the ostium. The mid LAD contains a 50 to 60% stenosis. There is diffuse disease in all vessels. The right coronary artery exhibits mild to moderate diffuse disease. In the midportion there is a 40 to 50% stenosis. In the posterior left ventricular branch there is a 90% ostial stenosis. These findings were all there previously prior to the angioplasty of the second diagonal branch.. PCI Status: Emergency PCI LVEF Assessed: No PCI Indication: STEMI - Immediate PCI for STEMI Interventional Findings * There was a very tiny stump at the ostium of the occluded vessel. With some difficulty a wire was placed. Balloon angioplasty was performed which opened the vessel. This time I placed a 2.5 x 15 mm stent carefully placing the proximal portion of the stent just at the opening of the diagonal so as not to embarrass the flow to the LAD. A good angiographic result was obtained. Decision for PCI with Surgical Consult: No PCI for Multi-vessel Disease: No Conclusions 1. Stent thrombosis of a recently angioplastied second diagonal branch. The vessel was opened and stented without incident. Recommendations * Medical therapy now. Interventional RX Recommendation: PCI w/o planned CABG Diagnostic RX Recommendation: PCI w/o planned CABG Anticoagulation: Heparin Pressures Phase:Rest AO : 114 / 80 ( 93 ) @ 2:14:00 PM 114 / 90 ( 100 ) @ 2:14:00 PM 122 / 90 ( 105 ) @ 2:19:00 PM Clinical Evaluation EBL: 5mL-10mL Procedural Details Pre-Procedure Time Out. Identified patient by full name and date of as verbalized by the patient/guarantor. Does the consent match the physician's order: Yes. Accurate & Complete Informed Consent: Yes. Inpatient/Outpatient History & Physical on Chart: Yes. If H&P is completed, is and addenduem needed: No; If yes, is the addendum complete: N/A. Physician arrived. Visualize and Verify Site with Patient/Guarantor: N/A. Relevant Radiology Images available: Yes. Pre-op teaching completed and patient verbalized understanding. The risks, benefits, and alternatives of sedation and/or procedure were discussed by physician. The patient agrees to continue. Procedure started. [facility] Clinical Fraility Score: 3: Managing Well. Firmware Developer Indications: ACS <= 24 hours. Chest Pain Symptom Assessment: Atypical Angina. Cardiovascular Instability: Yes, if yes, Persistant Ischemic Symptoms. Correct patient, site and procedure confirmed by cath team. Current diagnosis: ACS. PERRLA. 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 Lungs clear x 5 lobes. Oxygen started at 2liters/min via nasal canula. Physician scrubbed in. Immediate Pre-Procedure Time Out. Correct Patient: Yes; Correct Procedure: Yes; Correct Site: Yes; Correct Patient Position: Yes; Correct Supplies: Yes; Dried Flammable Prep: Yes; Blood Products Available: N/A;. Baseline sample Acquired. HR: 75 BPM. Lidocaine 1% infiltrated to the right groin. Arterial access obtained. AP Pads placed on patient. 6 cape verdean XB 3 guide catheter was inserted over the wire. Multiple views taken of left coronary artery. [place] guidewire was advanced through the guide catheter to lesion in the diaganol. Inflation number : 1 A AB TREK 2.50X20 RX BALLOON was prepped and advanced across the 1st Diag , then inflated to 8 ALEJANDRO for 0:18 seconds. Inflation number: 2 The AB TREK 2.50X20 RX BALLOON was reinflated across the 1st Diag, to 8 ALEJANDRO for 0:12 seconds. Results checked. Balloon out. Inflation Number : 3 A BRITT Akins JIGAR 2.25X15 BRENDA -Lot Number# _[id number] EXP: 10/15/2023 was prepped and advanced across the 1st Diag. The stent was deployed at 14 ALEJANDRO for 0:30 seconds. Results checked. Stent balloon out over wire. Wire out. Guide catheter out. A 6 cape verdean JR4 catheter in over wire. Multiple views taken of right coronary artery. Catheter out. Physician review of cine films. Physician scrubbed out. Sheath(s) sutured into position with 2-0 silk and sterile 4x4's and Op-site applied over the site. No oozing or signs and symptoms of hematoma noted. Arterial sheath flushed and connected to tranducer and pressure bag with heparinized saline. A Suture was successful obtaining hemostatsis at the Right Femoral artery insertion site. Post Procedure: Pulses reassessed and unchanged. PERRLA. 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 No VTE prophylaxis required. Medication's Wasted: Heparin = 4000 units. Total IV fluids: 50 mL. Complications: None. Estimated blood loss: 5mL-10mL. Responsiveness - Normal response to verbal stimuli; alert and oriented, PERRLA. Airway - Unaffected, no intervention required; spontaneous ventilation. Circulation: W/N/L, pulses unchanged. Nausea/Vomiting: No. Procedure completed. Patient transferred by bed to 1st floor. Vital chart was stopped. Access Site Site: Right Femoral artery Sheath Size: 6 Fr Hemostasis Method: Suture Hemostasis Success: Successful Procedure Medications Start: 2:10 PM Stop: 2:10 PM Medication: Versed Amount: 1 mg Route: I.V. Start: 2:10 PM Stop: 2:10 PM Medication: Fentanyl Amount: 50 mcg Route: I.V. Start: 2:14 PM Stop: 2:14 PM Medication: Zofran (ondansetron) Amount: 4 mg Route: I.V. Start: 2:31 PM Stop: 2:31 PM Medication: Versed Amount: 1 mg Route: I.V. Start: 2:32 PM Stop: 2:32 PM Medication: Heparin Amount: 5000 units Route: I.V. Start: 2:38 PM Stop: 2:38 PM Medication: Versed Amount: 1 mg Route: I.V. Start: 2:38 PM Stop: 2:38 PM Medication: Fentanyl Amount: 50 mcg Route: I.V. I, the attending physician, have reviewed and verified all procedure medications. Yes, all medications given per verbal order History/Risk Factors Hypertension: Yes Dyslipidemia: Yes Peripheral Arterial Disease (PAD): No Myocardial Infarction (CA): No Obesity: Yes Renal Disease: No Tobacco Use: Never Prior Interventions PCI: No CABG: No Valve Surgery: No Report Signatures Finalized by Dr. Thomas Simmons MD on 03/23/2022 02:59 PM
--- NOTE | 2022-03-23 13:50 | PC.NURSE ---
Pt received back from cardiac catheterization technician at 1114 with report of chest pain and elevated blood pressure. Nurse let Dr. Simmons know who started him on hydralizine 10 IVP Q6H. Nitroglycerin was also started for patient reporting chest pain 08/18. Nurse gradually increased nitro up to 60 but no resolve in chest pain. Blood pressure did lower to 113/87. school attendance secretary then said come look at the monitor and patient had noticeable ST elevation. EKG done and sent to Dr. Simmons. Dr. Simmons then called nurse and instructed that patient was going back to cardiac catheterization technician. Morphine was also given for chest pain with no relief. Patient remains stable with chest pain at 7/10 while waiting on cardiac catheterization technician to arrive.
--- NOTE | 2022-03-23 14:18 | ECG_ITS ---
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 Measurements Intervals [place] Rate: 84 P: 47 [place]: 146 QRS: -16 QRSD: 105 T: -5 QT: 352 QTc: 417 Interpretive Statements SINUS RHYTHM MODERATE ST DEPRESSION [0.05+ mV ST DEPRESSION] Compared to ECG 03/22/2022 16:31:28 ST (T wave) deviation now present Electronically Signed On 03-24-2022 8:53:56 SUPERVISOR THROWING DEPARTMENT by Carlton Jean M.D. [id number]
--- NOTE | 2022-03-23 14:41 | P.PN_ITS ---
Subjective Subjective: Patient was seen this morning, family members at bedside, he is n.p.o., there is plans on cardiac catheterization this is ordered, he is chest pain-free Vitals/I&O/Wt Last Vital Signs Temp 98.2 F 03/23/22 13:05 Pulse 89 03/23/22 13:05 Resp 16 03/23/22 13:05 BP 145/105 03/23/22 13:05 Pulse Ox 95 03/23/22 13:03 O2 Del Method 03/23/22 13:03 O2 Flow Rate 3 03/23/22 13:03 03/22/22 03/23/22 03/23/22 22:59 06:59 14:59 Intake Total 227.733 / 227.733 356.133 / 356.133 Output Total 350 / 350 Balance 227.733 / 227.733 6.133 / 6.133 Weight last 48 hrs Weight 116.392 kg Weight 113.398 kg Physical Exam Const: COMMON NORMALS: no acute distress and patient oriented x3 Resp: COMMON NORMALS: normal respiratory effort, No retractions, No use of accessory muscles and clear to auscultation bilaterally AUSCULTATION: clear to auscultation bilaterally Cardio: COMMON NORMALS: regular rate, regular rhythm, S1 normal heart sound present and S2 normal heart sound present RATE: regular rate RHYTHM: regular rhythm HEART SOUNDS: S1 normal heart sound present and S2 normal heart sound present GI: COMMON NORMALS: Normal to inspection, nondistended, normoactive bowel sounds present and non-tender Extremity: COMMON NORMALS: no pedal edema Neuro: COMMON NORMALS: patient oriented x3 Psych: COMMON NORMALS: mental status grossly normal Data 03/23/22 04:15 03/23/22 04:15 A&P Assessment and plan (1) Acute non-ST elevation myocardial infarction (NSTEMI): (2) Hypertension: (3) Chest pain: (4) Goals of care, counseling/discussion: (5) Obesity: (6) Dyslipidemia: (7) Sleep apnea: (8) Elevated troponin: (9) Prediabetes: (10) Hypertensive emergency: Plan Chest pain, NSTEMI Plan -Serial EKGs, serial troponins, telemetry monitoring -Troponin 41 -Nitro as needed for chest pain -Urine toxicology screen within normal limits, TSH within normal limits, magnesium within normal limits -Cardiac echo, within normal limits -Continue Coreg for hypertension -Prediabetes will need diabetes control -Aspirin, statin -Heparin drip -Plans on cardiac catheterization today -Full code -SCDs and heparin for DVT prophylaxis Update patient underwent cardiac catheterization found to have diffuse disease, mainly small vessel disease, and branch artery disease, received angioplasty to first diagonal branch, moved back to [facility] Update, in [facility] patient continued to complain of chest pain, had hypertensive emergency, placed on nitroglycerin, received hydralazine continue to have chest pain, EKG ST elevations inferiorly taken back to cardiac catheterization lab Attestations Medical Necessity Statement*: Patient requires hospitalization due to rec urrent chest pain, hypertensive emergency, recurrent chest pain requiring repeat angiography, ST elevations in inferior leads Critical Care Time: 35 Diagnoses Acute non-ST elevation myocardial infarction (NSTEMI) I21.4 Hypertension I10 Chest pain R07.9 Goals of care, counseling/discussion Z71.89 Obesity E66.9 Dyslipidemia E78.5 Sleep apnea G47.30 Elevated troponin R77.8 Prediabetes R73.03 Hypertensive emergency I16.1
[2022-03-23] MEDS: metoprolol tartrate 25 mg Tablet PO (17:41)
[2022-03-23 18:11] LABS: Partial Thromboplastin Time 26.7 SECONDS (23.9-36.7)
[2022-03-23] MEDS: sodium chloride 0.9% 1,000 ML 100 ML IV (19:37)
[2022-03-23] MEDS: atorvastatin 40 mg Tablet 80 MG PO (20:08)
[2022-03-23] MEDS: nitroglycerin 0.4 mg sublingual Tablet SUBLINGUAL (20:31)
[2022-03-24] MEDS: sodium chloride 0.9% 1,000 ML 100 ML IV (02:27)
[2022-03-24 03:57] VITALS: BP 132/86; PULSE 87; RESP 14; TEMP 37.1; O2SAT 95
[2022-03-24 05:11] LABS: Basophils # 0.1 10^3/uL (0.0-0.1); Basophils % 0.4 %; Eosinophils # 0.1 10^3/uL (0.0-0.8); Eosinophils % 0.4 %; Hematocrit 47.2 % (42.0-52.0); Hemoglobin 14.9 g/dL (11.7-16.6); Lymphocytes # 2.1 10^3/uL (0.8-4.8); Mean Corpuscular HGB Conc 31.6 g/dL (30.0-36.0); Mean Corpuscular Hemoglobin 27.3 pg (28.0-34.0); Mean Corpuscular Volume 86.4 fl (80-94); Mean Platelet Volume 10.3 fL (7.4-10.4); Monocytes # 1.1 10^3/uL (0.2-0.9); Neutrophils # 10.55 10^3/uL (1.8-7.7); Neutrophils % 75.8 %; Nucleated Red Blood Cells % 0 %; Platelet Count 320 10^3/cmm (130-400); Red Blood Count 5.46 10^6/uL (4.1-5.3); Red Cell Distribution Width 12.8 % (12.1-15.1); White Blood Count 13.9 10^3/uL (4.0-10.0)
[2022-03-24 05:35] LABS: Blood Urea Nitrogen 17 mg/dL (6-20); Calcium 8.9 mg/dL (8.5-10.5); Carbon Dioxide 22 mmol/L (22-29); Chloride 99 mmol/L (98-107); Glomerular Filtration Rate 90.4 mL/min (90-130); Glucose 129 mg/dL (65-115); Osmolality Calculated 281 mOsm/kg (285-295); Sodium 134 mmol/L (136-145)
[2022-03-24 05:59] VITALS: PULSE 68
[2022-03-24 07:52] VITALS: BP 134/88; PULSE 84; RESP 18; TEMP 36.5; O2SAT 95
--- NOTE | 2022-03-24 08:23 | PM.PN ---
Subjective Subjective: I reviewed the events of yesterday with Ibrahima in detail today. He had a large diagonal branch which I felt was causing his angina upon initial angiography yesterday. Because of the location of the lesion I chose first not to stent the vessel for fear of either placing the stent too far distally or too far proximally. Unfortunately, the vessel closed shortly after the procedure was completed. He went back to the lab and ultimately I ended up stenting the artery. He has done well since that time. He does have other areas of coronary artery disease and smaller vessels all of which are probably too small to cause angina by themselves. He is free of discomfort this morning and his blood pressure is under better control. Vitals/I&O/Wt Last Vital Signs Temp 97.7 F 03/24/22 07:52 Pulse 84 03/24/22 07:52 Resp 18 03/24/22 07:52 BP 134/88 03/24/22 07:52 Pulse Ox 95 03/24/22 07:52 O2 Del Method 03/24/22 07:52 O2 Flow Rate 3 03/23/22 13:03 03/23/22 03/24/22 03/24/22 22:59 06:59 14:59 Intake Total 1018.333 / 1374.466 683.333 / 2057.799 Output Total 500 / 850 Balance 1018.333 / 1024.466 183.333 / 1207.799 Weight last 48 hrs Weight 256 lb 9.6 oz Weight 250 lb Physical Exam Narrative: GENERAL: In general he looks and feels well this morning HEENT: Exam within normal limits. NECK: Supple without jugular vein distention. The carotid upstroke is normal without bruits. BACK: Exam normal. LUNGS: Clear. HEART: Regular rate and rhythm. ABDOMEN: Benign without organomegaly or tenderness. EXTREMITIES: No edema. The right radial artery area is flat, dry without hematoma, bleeding or vascular anomaly. There is a good radial pulse. The right groin is also flat, dry without areas of bleeding or hematoma. NEUROLOGIC: Exam normal. SKIN: Unremarkable. Data 03/24/22 04:19 03/24/22 04:19 A&P Assessment and plan (1) Hypertensive emergency: (2) Prediabetes: (3) Elevated troponin: (4) Sleep apnea: (5) Dyslipidemia: (6) Obesity: (7) Acute non-ST elevation myocardial infarction (NSTEMI): Plan He may go home today. No lifting over 5 pounds for 2 days. Gradual increase in activity over the next several days. He should go home on low-dose aspirin, Plavix, Imdur 30 mg daily, sublingual nitroglycerin, Lopressor 25 mg twice daily, high-dose statin either in the form of atorvastatin 80 mg daily or Crestor 40 mg daily. Follow-up in our office in 7 to 10 days for assessment of his groin, right wrist and medications as well as renal function. Attestations Medical Necessity Statement*: May go home today. and Moderate Time for a total of 26 minutes, includes reviewing past or interval history, examining/interviewing patient, placing orders, counseling patient/family/other support, updating patient/family/other support, discussing plan of care with staff, communicating with other healthcare providers, documenting encounter and coordinating care Diagnoses Hypertensive emergency I16.1 Prediabetes R73.03 Elevated troponin R77.8 Sleep apnea G47.30 Dyslipidemia E78.5 Obesity E66.9 Acute non-ST elevation myocardial infarction (NSTEMI) I21.4
[2022-03-24] MEDS: aspirin 81 mg EC Tablet PO (08:47)
[2022-03-24] MEDS: metoprolol tartrate 25 mg Tablet PO (08:48)
[2022-03-24] MEDS: pantoprazole DR 40 mg Tablet PO (08:48)
[2022-03-24] MEDS: clopidogrel 75 mg Tablet PO (08:48)
[2022-03-24 09:59] VITALS: BP 134/88; PULSE 84; RESP 18; TEMP 36.5; O2SAT 95
--- NOTE | 2022-03-24 10:29 | PM.DCS ---
Discharge Providers Date of Admission: 03/22/22 15:26 Date of Discharge: March 24, 2022 Attending Provider at Admission: Osbaldo Hale MD Attending Provider at Discharge: Rupert Bunn Diagnoses at Discharge Discharge Diagnosis (1) Hypertensive emergency: Status: Acute (2) Prediabetes: Status: Acute (3) Elevated troponin: Status: Acute (4) Sleep apnea: Status: Acute (5) Dyslipidemia: Status: Acute (6) Obesity: Status: Acute (7) Acute non-ST elevation myocardial infarction (NSTEMI): Status: Acute Reason for Visit Reason for Visit: cp Hospital Course Hospital Course 46-year-old gentleman with known history of CAD, came in for assessment due to chest discomfort, heartburn-like sensation, on presentation with mild to moderate troponin elevation, with symptoms resolved, EKG completely normal. Was started on aspirin, statin, heparin drip, nitroglycerin as needed, cardiology was consulted, underwent coronary angiogram for further assessment, underwent angioplasty for stent on branch, also found to have moderate diffuse disease of ramus intermedius artery as well as very distal obtuse marginal branch. After return from car angiogram became hypertensive, began to have chest pain minimal ST segment depression on EKG in V1 as well as ST depression and some T wave inversions in 3 and aVF. Medication changes were made. Subsequently also started on nitro drip. Reassessment EKG with ST segment elevation inferiorly in the observation of for underwent angioplasty. Return back to [facility], with finding of diagonal branch closure, underwent stenting of the artery. He is doing well today. Remains pain-free. He is cleared for discharge by cardiology with follow-up in office. Instructed to continue diabetic diet, continue monitoring blood pressures follow-up with primary provider to continue optimize cardiovascular risk factors. Physical Exam Narrative: Accompanied by family Const: COMMON NORMALS: patient oriented x3 and alert GENERAL APPEARANCE: cooperative NUTRITIONAL APPEARANCE: overweight ORIENTATION/CONSCIOUSNESS: Yes awake HENMT: COMMON NORMALS: oropharynx normal Neck/C-Spine: COMMON NORMALS: no JVD Resp: COMMON NORMALS: normal respiratory effort and clear to auscultation bilaterally AUSCULTATION: clear to auscultation bilaterally Cardio: COMMON NORMALS: no JVD, regular rhythm, S1 normal heart sound present, S2 normal heart sound present and No murmurs present (Cardio) RHYTHM: regular rhythm HEART SOUNDS: S1 normal heart sound present and S2 normal heart sound present GI: COMMON NORMALS: Normal to inspection, nondistended, normoactive bowel sounds present, Soft to palpation and non-tender PALPATION: Yes Soft to palpation Extremity: COMMON NORMALS: no joint enlargement and no pedal edema NARRATIVE EXTREMITY EXAM: Right wrist access site appears unremarkable. Right groin access site with bruise, no bleeding, no hematoma, pulsatile mass. Neuro: COMMON NORMALS: patient oriented x3 and moves all extremities SENSORIUM/ORIENTATION: Yes alert Skin: COMMON NORMALS: no rashes or lesions noted GENERAL SKIN EXAM: no rashes or lesions noted Discharge Data Studies Completed and Pending Completed Studies During Hospitalization Category Date Time Status [employer] request for service Routine Exams 03/23/22 09:36 Completed [employer] request for service Routine Exams 03/23/22 13:49 Completed XR chest 1V portable [id number] Urgent Exams 03/22/22 12:01 Completed CV. echo complete* [id number] Stat Ultrasound 03/22/22 15:30 Completed Pending at discharge Category Date Time Status Sestamibi Stress Test Request Routine Exams 03/22/22 16:00 Stop Req Radiology Impressions Chest X-Ray 03/22/22 12:01 IMPRESSION: Mild cardiomegaly. Decreased lung volumes otherwise negative chest. Laboratory Results WBC 13.9 10^3/uL (4.0-10.0) H 03/24/22 04:19 RBC 5.46 10^6/uL (4.1-5.3) H 03/24/22 04:19 Hgb 14.9 g/dL (11.7-16.6) 03/24/22 04:19 Hct 47.2 % (42.0-52.0) 03/24/22 04:19 MCV 86.4 fl (80-94) 03/24/22 04:19 MCH 27.3 pg (28.0-34.0) L 03/24/22 04:19 MCHC 31.6 g/dL (30.0-36.0) 03/24/22 04:19 RDW 12.8 % (12.1-15.1) 03/24/22 04:19 Plt Count 320 10^3/cmm (130-400) 03/24/22 04:19 MPV 10.3 fL (7.4-10.4) 03/24/22 04:19 Neut % (Auto) 75.8 % 03/24/22 04:19 Lymph % (Auto) 15.0 % 03/24/22 04:19 [place] % (Auto) 8.0 % 03/24/22 04:19 Eos % (Auto) 0.4 % 03/24/22 04:19 Baso % (Auto) 0.4 % 03/24/22 04:19 Neut # (Auto) 10.55 10^3/uL (1.8-7.7) H 03/24/22 04:19 Lymph # (Auto) 2.1 10^3/uL (0.8-4.8) 03/24/22 04:19 [place] # (Auto) 1.1 10^3/uL (0.2-0.9) H 03/24/22 04:19 Eos # (Auto) 0.1 10^3/uL (0.0-0.8) 03/24/22 04:19 Baso # (Auto) 0.1 10^3/uL (0.0-0.1) 03/24/22 04:19 Nucleated RBC % (auto) 0 % 03/24/22 04:19 Nucleated RBCs # 0.0 /100WBC 03/24/22 04:19 APTT 26.7 SECONDS (23.9-36.7) 03/23/22 17:44 Sodium 134 mmol/L (136-145) L 03/24/22 04:19 Potassium 4.0 mmol/L (3.5-5.1) 03/24/22 04:19 Chloride 99 mmol/L (98-107) 03/24/22 04:19 Carbon Dioxide 22 mmol/L (22-29) 03/24/22 04:19 Anion Gap 17.0 (5-19) 03/24/22 04:19 BUN 17 mg/dL (6-20) 03/24/22 04:19 Creatinine 0.9 mg/dL (0.7-1.2) 03/24/22 04:19 GFR Calculation 90.4 mL/min (90-130) 03/24/22 04:19 Glucose 129 mg/dL (65-115) H 03/24/22 04:19 Estimat Average Glucose 128 03/22/22 16:42 Hemoglobin A1c 6.1 % (4.0-6.0) H 03/22/22 16:42 Calculated Osmolality 281 mOsm/kg (285-295) L 03/24/22 04:19 Calcium 8.9 mg/dL (8.5-10.5) 03/24/22 04:19 Phosphorus 3.8 mg/dL (2.5-4.5) 03/23/22 04:15 Magnesium 1.9 mg/dL (1.7-2.3) 03/23/22 04:15 Total Bilirubin 0.3 mg/dL (0.15-1.2) 03/22/22 12:05 AST 23 U/L (0-40) 03/22/22 12:05 ALT 41 U/L (0-41) 03/22/22 12:05 Alkaline Phosphatase 80 U/L (40-130) 03/22/22 12:05 Troponin T Gen 5 ng/L 41 ng/L (0-15) H 03/23/22 04:15 Troponin T Baseline 41 ng/L (0-15) H 03/22/22 12:05 Troponin T 120 Minute 76.26 ng/L (0-15) H 03/22/22 14:31 Delta Troponin T 35.26 ABS# (0-10) H* 03/22/22 14:31 Troponin T Hi Sens 6Hr 47.55 ng/L (0-15) H 03/22/22 18:07 Troponin T Hi Sens 6Hr Delta 6.55 ng/L (0-12) 03/22/22 18:07 NT-Pro-B Natriuret Pep 76 pg/mL (0-125) 03/22/22 16:42 Total Protein 7.6 g/dL (6.6-8.7) 03/22/22 12:05 Albumin 4.9 g/dL (3.5-5.2) 03/22/22 12:05 Globulin 2.7 g/dL (1.3-4.6) 03/22/22 12:05 Triglycerides 130 mg/dL (0-150) 03/22/22 16:42 Cholesterol 279 mg/dL (0-200) H 03/22/22 16:42 LDL Cholesterol, Calc 213 mg/dL (50-129) H 03/22/22 16:42 HDL Cholesterol 40 mg/dL (60-100) L 03/22/22 16:42 LDL/HDL Ratio 5.33 RATIO (0.00-3.22) H 03/22/22 16:42 Cholesterol/HDL Ratio 6.98 mg/dL (1.0-5.00) H 03/22/22 16:42 TSH 0.82 uIU/mL (0.27-4.20) 03/22/22 16:42 Urine Opiates Screen Negative ng/mL (Negative) 03/22/22 17:07 Ur Barbiturates Screen Negative ng/mL (Negative) 03/22/22 17:07 Ur Phencyclidine Scrn Negative ng/mL (Negative) 03/22/22 17:07 Ur Amphetamines Screen Negative ng/mL (Negative) 03/22/22 17:07 U Benzodiazepines Scrn Negative ng/mL (Negative) 03/22/22 17:07 Urine Cocaine Screen Negative ng/mL (Negative) 03/22/22 17:07 U Marijuana (THC) Screen Negative ng/mL (Negative) 03/22/22 17:07 Vitals Last Vital Signs Temp 97.7 F 03/24/22 09:59 Pulse 84 03/24/22 09:59 Resp 18 03/24/22 09:59 BP 134/88 03/24/22 09:59 Pulse Ox 95 03/24/22 09:59 O2 Del Method 03/24/22 07:52 O2 Flow Rate 3 03/23/22 13:03 Discharge Plan Discharge Patient Disposition: Home Condition: Stable Prescriptions: New rosuvastatin [Crestor] 40 mg tablet 40 mg PO DAILY Qty: 90 0RF aspirin 81 mg Tablet,Delayed Release (Dr/Ec) 81 mg PO DAILY Qty: 90 0RF nitroglycerin 0.4 mg Tablet, Sublingual 0.4 mg sublingual Q5M PRN (Reason: Chest Pain) Qty: 20 0RF clopidogrel 75 mg Tablet 75 mg PO DAILY Qty: 90 0RF metoprolol tartrate 25 mg Tablet 25 mg PO BID Qty: 180 0RF isosorbide mononitrate 30 mg tablet extended release 24 hr 30 mg PO QAM Qty: 90 0RF No Action No Known Home Medications Discharge Orders: Discharge Order (Routine); Ordered 03/24/22 Ordered By: Rupert Bunn Referrals: Primary, provider [Other] - 4-7 days Thomas Simmons MD [Physician] - 1 month Rosa Osman FNP [Nurse Practitioner] - 7-10 days (Please follow-up with Rosa Osman on Thursday, at 9;45A.M. If you have any questions or need reschedule. Please call ) Discharge Diet: Cardiac and Diabetic Discharge Activity: Increase activity as tolerated, Limit activity as instructed and Cpap/Bipap as instructed Patient Instructions: Coronary Angioplasty (DC), Hypertension (DC), Prediabetes (GEN), Chest Pain Stoplight, Opioid Safety, Post Angiogram Home Care Instructions Activity Restrictions/Additional Instructions: No lifting over 5 pounds for 2 days. Gradually increase activity over the next several days without heavy manual labor for 1 week. Follow-up with your primary doctor for assessment and management of prediabetes as well as other cardiovascular risk factors. Monitor your blood pressures 3 times daily. Write down values to bring to your appointment. Discharge Attestations Time Spent in Discharge Care*: greater than 30 min Quality Metrics Clinical Quality Measures [ Acute Myocardial Infaction { Clinical Trial Participant: No; Contraindication to aspirin: None; Aspirin prescribed; Contraindication to statin: None; Statin prescribed;}] Coding Level of Care Code Acute Code for [facility] Fwd Diagnoses Hypertensive emergency I16.1 Prediabetes R73.03 Elevated troponin R77.8 Sleep apnea G47.30 Dyslipidemia E78.5 Obesity E66.9 Acute non-ST elevation myocardial infarction (NSTEMI) I21.4
--- NOTE | 2022-03-24 10:53 | PC.CHAP ---
Pastoral Care Encounter/Spiritual Assessment Type of Contact [] Declined manager house visit [] Patient/Family/Request visit [] Outpatient visit [] Follow-up visit [] Physician referral [] Code/Alert [X] Routine visit [] Staff referral [] Actively dying [] Patient sleeping [] Family support [] [] Out of room [] Palliative care [] [] Receiving care in room [] Pre-surgical visit [] Trauma [] Long length of stay [] ICU visit [] Other: Relational/Emotional Strength [X] Patient feels connected with others/family/visitors/staff [] Distress [] Loneliness/isolation [] Abandonment Spirituality of Patient [X] Person of Ketty [] Attends Cheondoism of their Ketty [X] Believes in Prayer [] Reads Bible or Scientologist materials [] There are Spiritual issues to be addressed Single Resource Boss Interventions [X] Prayer [X] Active listening [X] Non-anxious presence [X] Spiritual/emotional support [] Crisis/trauma care [] Spiritual counseling [] Bereavement support [] Provided bereavement packet [] Provided Bible/devotional materials [] Provided toy/stuffed animal, coloring book to patient or family member [] Provided Communion [] Anointing/[place] [] Salvation [X] Completed spiritual assessment [] Other: Impact on Illness or Injury [] Angry [] Fearful [] Anxious [] Often cries [] Exhaustion [] Unable to work [] Unable to attend alevism [] Unable to walk/stand [] Unable to read [] Unable to drive [] Unable to eat/drink [] Unable to sleep [] Unable to be with family [] Patient intubated [] Other: Summary Time spent with patient 10 MIN
[2022-03-24 11:29] VITALS: BP 127/67; PULSE 69; RESP 23; O2SAT 96
--- NOTE | 2022-03-24 12:13 | PC.NURSE ---
Patient was discharged at 1213 with full discharge instructions and education given. Patient verbalized understanding. Patient wheeled to main entrance with Tram, TAILER IN and at side. Medications were delivered meds to bed and pharmacy went over instructions with patient.
== END 2022-03-24 12:13 | disposition home or self-care (01) | DRG 247 ==
LOC: ER 15:22 → CSU 15:36
PROVIDERS: Internal Medicine Cardiovascular Disease; Admitting Provider Family Medicine; Emergency Provider Physician Assistant; Visit Provider Internal Medicine
PROC: 027034Z Dilation of Coronary Artery, One Artery with Drug-eluting Intraluminal Device, Percutaneous Approach (ICD-10-PCS; principal; 2022-03-23 10:00)
PROC: 027034Z Dilation of Coronary Artery, One Artery with Drug-eluting Intraluminal Device, Percutaneous Approach (ICD-10-PCS; 2022-03-23 10:00)
DX: I21.4 Non-ST elevation (NSTEMI) myocardial infarction (principal); I16.1 Hypertensive emergency; R73.03 Prediabetes; E78.5 Hyperlipidemia, unspecified; E66.9 Obesity, unspecified; I25.10 Atherosclerotic heart disease of native coronary artery without angina pectoris; I10 Essential (primary) hypertension; G47.33 Obstructive sleep apnea (adult) (pediatric); Z99.89 Dependence on other enabling machines and devices
CPT/HCPCS: 36415; 71045; 80048; 80053; 80061; 80306; 83036; 83735; 83880; 84100; 84443; 84484; 85025; 85049; 85730; 92920; 93005; 93306; 93458; 94664; 96374; 99152; 99153; 99285; C1725; C1769; C1874; C1887; C1894; C9600; J0360; J0461; J1644; J2250; J2270; J2405; J3010; J3490; J7030; Q0163; Q9967

== ENCOUNTER → 2022-04-01 10:40 | Outpatient (BNVA) | payer OTHER, SELFPAY | PROVIDERS: Visit Provider Nurse Practitioner Family | DX: I25.10 Atherosclerotic heart disease of native coronary artery without angina pectoris (principal); I10 Essential (primary) hypertension | CPT/HCPCS: 36415; 80048 ==

== ENCOUNTER → 2023-10-07 09:48 | Outpatient (BNVA) | payer OTHER, SELFPAY | PROVIDERS: PCP Electrodiagnostic Medicine; Visit Provider Nurse Practitioner Family | DX: I21.29 ST elevation (STEMI) myocardial infarction involving other sites (principal); I21.4 Non-ST elevation (NSTEMI) myocardial infarction; I25.10 Atherosclerotic heart disease of native coronary artery without angina pectoris; R00.1 Bradycardia, unspecified | CPT/HCPCS: 93005 ==

== ENCOUNTER 2023-10-19 09:25 | Outpatient (CLI) | payer OTHER, SELFPAY ==
[2023-10-19 09:40] VITALS: BMI 39.3
--- NOTE | 2023-10-19 09:43 | NMCV_ITS ---
NM ailyn perf SPECT r/s* [id number] Ibrahima Pederson Age: 48 Gender: M : 1975 Exam Date: 10/19/2023 09:43 Ordering Phys: Carlton Jean M.D ([email or web address]) Technologist: FARSHAD Palmer Exam Location: [facility] Indications: CP, ASHD STRESS TEST [facility] IMAGE PROTOCOL Rest/Stress 1 Lexiscan Day Radiopharmaceutical Dose (mCi) Administration Site Administered by Rest: Tc-99m 10.2 IV FARSHAD Palmer Sestamibi Stress:Tc-99m 33.0 IV FARSHAD Palmer Sestamibi Rest: 19-Oct-2023 60 Discovery 630 Stress: 19-Oct-2023 30 Discovery 630 0.4mg Lexiscan. Images obtained in supine and prone position. SPECT RESULTS Technical Quality: Good Raw Data Analysis: Normal Image Corrections: No attenuation or motion correction applied Summed Stress Score: 18 Summed Rest Score: 17 Summed Difference Score: 2 PERFUSION FINDINGS There is large area of mostly fixed perfusion defect seen in the anterior and lateral samano. This is consistent with large area of prior infarct with minimal victor manuel-infarct ischemia seen in the these territories. FUNCTIONAL RESULTS (calculated via Gated SPECT) Stress Image LV EF (%): 49 Stress EDV (mL):163 TID: 1.25 Stress ESV (mL):83 FUNCTIONAL FINDINGS: LV systolic function is mildly reduced with EF of 49%. TID ratio is elevated. IMPRESSIONS 1. Abnormal myocardial perfusion imaging with a large area of prior infarct with minimal victor manuel-infarct ischemia in anterior and anterolateral samano. 2. LV systolic function is mildly reduced 3. TID ratio is elevated and is 1.25. This may represent multivessel CAD/ subendocardial ischemia. Carlton Jean MD (Electronically Signed) Final Date: 19 October 2023 12:34 S
--- NOTE | 2023-10-19 09:43 | ECG_ITS ---
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 Interpretive Statements NAME OF STUDY: LEXISCAN SESTAMIBI STRESS TEST INDICATION: [CP, ASHD, pre op clearance, ] Procedure: At the baseline, the blood pressure was 106/70 mmHg with a heart rate of 52 bpm. The electrocardiogram showed sinus bradycardia, normal axis with normal ST and T's. The Lexiscan was infused over a period of 20 seconds. A total of 0.4 mg of Lexiscan was infused. The stress phase was continued for a total of 5 minutes. Heart rate was at the end of stress phase was 68 bpm and a blood pressure of 110/57 mmHg. The EKG at the peak infusion revealed normal sinus rhythm with no significant ST-T wave changes. Sestamibi was injected 20 seconds after the Lexiscan infusion. Blood pressure at the end of recovery phase was 105/62 mmHg with a heart rate of 62 bpm. Conclusion: 1. Normal EKG response to Lexiscan infusion 2. No Lexiscan induced chest pain or cardiac arrhythmia. 3. Normal blood pressure and heart rate response. 4. Sestamibi/sestamibi perfusion scan pending; see separate report. Electronically Signed On 10-19-2023 11:52:37 CDT by Carlton Jean M.D. [email or web address]
[2023-10-19] MEDS: regadenoson 0.4 Mg/5 ml Syringe IVP (10:56)
[2023-10-19 11:12] VITALS: BP 105/62; PULSE 62
== END 2023-10-19 09:26 | disposition home or self-care (01) ==
PROVIDERS: PCP Internal Medicine; Visit Provider Internal Medicine
DX: Z01.818 Encounter for other preprocedural examination (principal); I25.10 Atherosclerotic heart disease of native coronary artery without angina pectoris; R07.9 Chest pain, unspecified; R94.39 Abnormal result of other cardiovascular function study
CPT/HCPCS: 36415; 78452; 93017; 96374; A9500; J2785

== ENCOUNTER 2023-11-18 08:52 | Outpatient (CLI) | payer OTHER, SELFPAY ==
--- NOTE | 2023-11-18 09:00 | XACV_ITS ---
Exam Room: 2 Ht: 170 cm Wt: 115 kg BSA: 2.38 m2 Gender: Male : 1975 Any Known Allergies: No known allergies Exam Priority: Routine Procedure(s): Procedure Description: Diagnostic procedure Procedure Description: Coronary Angiography Diagnostic Cath Status: Elective Diagnostic Findings * INDICATION: Dyspnea on exertion/abnormal stress test. * Left Main has no significant disease. * Circumflex is large sized vessel. Gives rise to a small sized OM 1 branch which has diffuse disease. OM 2 is a large sized vessel with no significant disease. After take off of OM 2, distal left circumflex artery/left posterolateral branch has a severe 95% stenosis however it is supplying a small territory. * Mid Left Anterior Descending: obstructive 70-80% stenosis, OLVIN: 3 flow. iFR confirmed significant stenosis with an ischemic value of 0.83. Medium to large sized diagonal artery has proximal stent with 50% stenosis. At take off the diagonal artery some haziness is seen. * Ramus artery is medium sized vessel and has a significant 80% stenosis, OLVIN: 3 flow. * Proximal Right Coronary Artery to Mid Right Coronary Artery: significant 80% stenosis, OLVIN: 3 flow. * Acute Marginal: severe 90% stenosis, OLVIN: 3 flow. * Coronary angiography shows co-dominance. Interventional Findings * Procedure detail: We engaged left main artery with XB 3.0 guide catheter. IV heparin was administered to maintain anticoagulation. After normalization, IFR wire was advanced into distal LAD. iFR value of 0.83 was obtained that was significantly abnormal. At this time IFR wire was removed and final angiogram was performed. 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 Conclusions 1. Severe multivessel coronary artery disease. We will refer to a center with CT surgery availability for CABG evaluation. 2. LAD stenosis confirmed to be severe with iFR value of 0.83. Recommendations * Continue aspirin and statin therapy. * Referring to CT surgery for CABG evaluation. * Outpatient cardiology follow up in 2 weeks. Interventional RX Recommendation: CABG Anticoagulation: Heparin Pressures Phase:Rest AO : 109 / 76 ( 93 ) @ 12:33:00 PM 100 / 70 ( 85 ) @ 12:39:00 PM 115 / 68 ( 89 ) @ 12:45:00 PM 108 / 67 ( 86 ) @ 12:45:00 PM 119 / 68 ( 89 ) @ 12:50:00 PM Clinical Evaluation EBL: 5mL-10mL Procedural Details Pre-Procedure Time Out. Identified patient by full name and date of as verbalized by the patient/guarantor. Does the consent match the physician's order: Yes. Accurate & Complete Informed Consent: Yes. Inpatient/Outpatient History & Physical on Chart: Yes. If H&P is completed, is and addenduem needed: No; If yes, is the addendum complete: N/A. Visualize and Verify Site with Patient/Guarantor: N/A. Relevant Radiology Images available: Yes. Pre-op teaching completed and patient verbalized understanding. The risks, benefits, and alternatives of sedation and/or procedure were discussed by physician. The patient agrees to continue. Procedure started. Current Diagnosis : Chest Pain. [facility] Clinical Fraility Score: 2: Well. Freelance Digital Project Manager Indications: Other. Chest Pain Symptom Assessment: Atypical Angina. Correct patient, site and procedure confirmed by cath team. PERRLA. 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 Lungs clear x 5 lobes. IV Site on Arrival: 20 gauge in the left anticubital. IV Fluids: 0.9% NaCl at KVO. 0 mL infused prior to labor mediator. Pre Procedural Pulses: bilateral dorsalis pedis was 2+. Pre Procedural Pulses: bilateral posterior tibial was Doppled. Pre Procedural Pulses: bilateral radial was 3+. Oxygen started at 2liters/min via nasal canula. right groin was prepped with chloroprep then draped in the usual sterile fashion. right radial was prepped with chloroprep then draped in the usual sterile fashion. Baseline sample Acquired. HR: 60 BPM. Physician arrived. Physician scrubbed in. Immediate Pre-Procedure Time Out. Correct Patient: Yes; Correct Procedure: Yes; Correct Site: Yes; Correct Patient Position: Yes; Correct Supplies: Yes; Dried Flammable Prep: Yes; Blood Products Available: Yes;. Lidocaine 1% infiltrated to the right radial. Arterial access obtained. A 5 ku[place]i TIG catheter in over wire. Multiple views taken of right coronary artery. Catheter redirected to the LCA. Multiple views taken of left coronary artery. Catheter removed over the exchange wire. A 5 ku[place]i JL3.5 catheter in over wire. Multiple views taken of left coronary artery. Catheter out. 6 ku[place]i XB 3 guide catheter was inserted over the wire. IFR guidewire was advanced through the guide catheter to lesion in the mid LAD. IFR Results: 0.83. Wire out. Results checked. Guide catheter out. Vital chart was stopped. A TR Band was successful obtaining hemostatsis at the Right Radial artery insertion site. Post Procedure: Pulses reassessed and unchanged. PERRLA. 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 No VTE prophylaxis required. Medication's Wasted: Lidocaine 1% = 18 mL. Medication's Wasted: Nitro = 49.8 mg. Medication's Wasted: Heparin = 1000 units. Total IV fluids: 30 mL. Post-op diagnosis: CAD. Complications: None. Estimated blood loss: 5mL-10mL. Responsiveness - Normal response to verbal stimuli; alert and oriented, PERRLA. Airway - Unaffected, no intervention required; spontaneous ventilation. Circulation: W/N/L, pulses unchanged. Nausea/Vomiting: No. Procedure completed. Patient transferred by wheelchair to ICU. Access Site Site: Right Radial artery Sheath Size: 6 Fr Hemostasis Method: TR Band Hemostasis Success: Successful Procedure Medications Start: 11:19 AM Stop: 11:19 AM Medication: Versed Amount: 1 mg Route: I.V. Start: 11:19 AM Stop: 11:19 AM Medication: Fentanyl Amount: 50 mcg Route: I.V. Start: 11:24 AM Stop: 11:24 AM Medication: Versed Amount: 1 mg Route: I.V. Start: 11:24 AM Stop: :24 AM Medication: Fentanyl Amount: 50 mcg Route: I.V. Start: 11:27 AM Stop: 11: AM Medication: Nitrogylcerin Amount: 200 mcg Route: I.A. Start: 11:30 AM Stop: 11:30 AM Medication: Heparin Amount: 5000 units Route: I.V. Start: 11:46 AM Stop: 11:46 AM Medication: Heparin Amount: 5000 units Route: I.V. I, the attending physician, have reviewed and verified all procedure medications. Yes, all medications given per verbal order History/Risk Factors Hypertension: Yes Dyslipidemia: No Peripheral Arterial Disease (PAD): No Myocardial Infarction ([place]): No Obesity: No Renal Disease: No Tobacco Use: Never Prior Interventions PCI: Yes CABG: No Valve Surgery: No Date of PCI: 03/23/2022 Report Signatures Finalized by Carlton Jean MD on 11/19/2023 12:41 PM
[2023-11-18 09:25] VITALS: BP 132/78; PULSE 63; RESP 18; TEMP 36.8; O2SAT 97; BMI 39.0
[2023-11-18] MEDS: diphenhydrAMINE 50 mg Capsule PO (09:25)
[2023-11-18 09:44] LABS: Basophils # 0.1 10^3/uL (0.0-0.1); Basophils % 0.8 %; Eosinophils # 0.3 10^3/uL (0.0-0.8); Eosinophils % 3.6 %; Hematocrit 46.1 % (37-53); Lymphocytes % 25.6 %; Mean Corpuscular HGB Conc 32.1 g/dL (30-55); Mean Corpuscular Hemoglobin 27.7 pg (27-33); Mean Corpuscular Volume 86.2 fl (82-101); Mean Platelet Volume 9.9 fL (7.4-10.4); Monocytes # 0.7 10^3/uL (0.2-0.9); Monocytes % 8.9 %; Neutrophils # 4.79 10^3/uL (1.8-7.7); Neutrophils % 60.8 %; Nucleated Red Blood Cells % 0 %; Platelet Count 276 10^3/cmm (157-399); Red Blood Count 5.35 10^6/uL (3.85-5.65); Red Cell Distribution Width 12.5 % (12.1-15.1); White Blood Count 7.86 10^3/uL (3.29-11.43)
[2023-11-18 10:03] LABS: Anion Gap 11.5 (5-19); Blood Urea Nitrogen 13 mg/dL (6-20); Calcium 9.1 mg/dL (8.5-10.5); Carbon Dioxide 28 mmol/L (22-29); Chloride 102 mmol/L (98-107); Creatinine Clr Calc Pharmacy 120.1588; Glomerular Filtration Rate 89.7 mL/min (90-130); Glucose 125 mg/dL (65-115); Osmolality Calculated 286 mOsm/kg (285-295); Potassium 4.5 mmol/L (3.5-5.1); Sodium 137 mmol/L (136-145)
--- NOTE | 2023-11-18 11:23 | W.PM.OPSFHP ---
Same Day Surgery H&P Indication for Procedure/HPI DATE OF PROCEDURE: November 18, 2023 CHIEF COMPLAINT/INDICATIONFOR SURGICAL PROCEDURE: Dyspnea on exertion/abnormal stress test PREOP DIAGNOSIS: Dyspnea on exertion/abnormal stress test PLANNED PROCEDURE: Operation Date: 11/18/23 10:00 Proposed Procedures p Cardiac Catheterization - C w/wo LV & Coros(Left) - Carlton Jean M.D Possible percutaneous coronary intervention 48 year old man with prior history of CAD who was planning to have bariatric surgery done has been having dyspnea on exertion. Stress test was abnormal. Plan for coronary angiogram with possible PCI. Medications/Allergies* Home Medications Medication Instructions Recorded Confirmed Type metformin 500 mg tablet 500 mg PO BID 11/17/23 11/18/23 History Allergies/Adverse Reactions Allergy/AdvReac Type Severity Reaction Status Date / Time No Known Allergies Allergy Verified 11/17/23 12:39 Current Medications: Generic Name Dose Route Start Last Admin Trade Name Freq PRN Reason Stop Dose Admin Sodium Chloride 1,000 mls @ 50 mls/hr 11/18/23 09:00 11/18/23 09:24 Sodium Chloride 0.9% IV 11/19/23 04:59 Not Given .Q20H ONE Pertinent History/Comorbid Conditions* Medical History (Updated 10/07/23 @ 10:57 by EVARISTO Jacques) Atherosclerosis of coronary artery Elevated troponin Sleep apnea Dyslipidemia No pertinent past medical history Surgical History (Updated 03/22/22 @ 15:34 by Osbaldo Hale MD) No pertinent past surgical history Family History (Updated 03/22/22 @ 15:35 by Osbaldo Hale MD) Hypertension Mother Father Social History Smoking and tobacco/nicotine status: never used tobacco/nicotine Alcohol intake: current Alcohol intake frequency: holidays/special occasions only Substance/Drug Use: never Pertinent Exam Findings alert, oriented x 3, clear to auscultation bilaterally and regular rate & rhythm Conscious Sedation Assessment PATIENT ASSESSED PRIOR TO SEDATION, WITH NO CHANGE NOTED: Yes AIRWAY EVAL/ANESTHESIA PLAN: normal airway, ASA III, Local Anesthesia, Risks, benefits & alternatives of sedation and/or procedure discussed and Patient agrees to continue as planned ADDITIONAL INFORMATION: Moderate sedation Recommendations Surgery/Procedure today (Left heart cath with possible percutaneous coronary intervention) Coding Level of Care Code Acute Code for Chg Fwannamarie
[2023-11-18 12:17] LABS: Glucose Point of Care 101 mg/dL (70-110)
--- NOTE | 2023-11-18 12:44 | PC.NURSE ---
Patient arrived on unit at 1215 unresponsive in wheelchair. Code blue was initiated. Refer to code sheet more information. Patient gently placed in floor and moved to bed with blow up mattress.
[2023-11-18 12:57] LABS: Troponin T (5th) Once < 6 ng/L (0-15)
--- NOTE | 2023-11-18 13:00 | ECG_ITS ---
[facility] Test Date: 2023-11-18 Pat Name: Ibrahima Pederson Department: Room: [facility] Gender: Male Counter Maker: : 1975 Requested By: Carlton Jean Order Number: [id number] Reading MD: ROBINSON SRIVASTAVA Measurements Intervals [place] Rate: 61 P: 21 [place]: 142 QRS: 9 QRSD: 111 T: 43 QT: 405 QTc: 409 Interpretive Statements SINUS RHYTHM POSSIBLE RIGHT VENTRICULAR CONDUCTION DELAY [RSR (QR) IN V1/V2] SEPTAL MYOCARDIAL INFARCTION , OF INDETERMINATE AGE [40+ ms Q WAVE IN V1/V2] INTERPRETATION BASED ON A DEFAULT AGE OF 40 YEARS Compared to ECG 10/07/2023 09:54:16 Sinus bradycardia no longer present Myocardial infarct finding still present Electronically Signed On 11-18-2023 20:11:30 CDT by ROBINSON SRIVASTAVA [email or web address] [id number] f
[2023-11-18 13:41] LABS: Magnesium 1.9 mg/dL (1.7-2.3)
[2023-11-18] MEDS: acetaminophen 325 mg Tablet PO (16:08)
--- NOTE | 2023-11-18 17:21 | P.SS_ITS ---
Short Stay Summary Providers Date of Admit/Discharge: 11/18/23 Attending Provider: Carlton Jean M.D Primary Care Provider: Rob Null DO Chief Complaint: R94.39 HPI History of Present Illness 48 year old man with prior history of CAD who was planning to have bariatric surgery done has been having dyspnea on exertion. Stress test was abnormal. Plan for coronary angiogram with possible PCI. Review of Systems General: Reports: 10 or more systems reviewed and unremarkable except in HPI and below Home Meds/Allergies Home Medications and Allergies Home Medications Medication Instructions Recorded Confirmed Type metformin 500 mg tablet 500 mg PO BID 11/17/23 11/18/23 History Allergies Allergy/AdvReac Type Severity Reaction Status Date / Time No Known Allergies Allergy Verified 11/17/23 12:39 PFSH Acute PFSH: Medical History Atherosclerosis of coronary artery Elevated troponin Sleep apnea Dyslipidemia No pertinent past medical history Surgical History No pertinent past surgical history Family History Mother Hypertension Father Hypertension Social History Smoking and tobacco/nicotine status: never used tobacco/nicotine Alcohol intake: current Alcohol intake frequency: holidays/special occasions only Substance/Drug Use: never Vitals/I&O/Wt Last Vital Signs Temp 98.3 F 11/18/23 09:25 Pulse 63 11/18/23 09:25 Resp 18 11/18/23 09:25 BP 132/78 11/18/23 09:25 Pulse Ox 97 11/18/23 09:25 O2 Del Method Room Air 11/18/23 12:30 Weight last 48 hrs Weight 253 lb Physical Exam Narrative: GENERAL: Patient is alert, awake and oriented x3. [] NECK: No jugular vein distension. [] HEENT: No cyanosis. No icterus. No pallor. [] HEART: Regular S1 and S2. No murmur, rub or gallop. [] LUNGS: Clear to auscultate bilaterally. [] CENTRAL NERVOUS SYSTEM: Grossly nonfocal. [] EXTREMITIES: Lower extremities with no edema bilaterally. Hospital Course Hospital Course Patient's coronary angiogram demonstrated severe multivessel coronary artery disease. Plan for referral to CT surgery for CABG evaluation. After hearing the news about multivessel coronary artery disease and need for CABG, patient had vasovagal response with sweating, bradycardia and passing out. Resolved spontaneously. IV fluids were given. No neurological symptoms/defects. EKG was performed not showing significant ST T wave changes. Patient was observed and was discharged home in a stable condition. Patient and family will inform us about where they will like to be referred as they are discussing that. 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 Routin e Exams 11/18/23 09:00 Taken Discharge Plan Discharge Patient Disposition: Home Prescriptions: Continued metoprolol tartrate 25 mg tablet See Rx Instructions .ROUTE .COMPLEX Qty: 180 2RF Dose Instruction: TAKE 1 TABLET BY MOUTH TWICE DAILY Rx Instructions: TAKE 1 TABLET BY MOUTH TWICE DAILY clopidogrel 75 mg Tablet 75 mg PO DAILY Qty: 90 0RF aspirin 81 mg Tablet,Delayed Release (Dr/Ec) 81 mg PO DAILY Qty: 90 0RF nitroglycerin 0.4 mg Tablet, Sublingual 0.4 mg sublingual Q5M PRN (Reason: Chest Pain) Qty: 20 0RF rosuvastatin [Crestor] 40 mg tablet 40 mg PO DAILY Qty: 90 0RF isosorbide mononitrate 30 mg tablet extended release 24 hr 30 mg PO QAM Qty: 90 0RF Held metformin 500 mg Tablet 500 mg PO BID Hold Instructions: Resume on 11/20/23. Discharge Orders: Discharge Order (Routine); Ordered 11/18/23 Ordered By: Carlton Jean Referrals: Rosa Osman FNP [Nurse Practitioner] - 7-10 days (Please follow up with Rosa LOERA, we have made the following appt for you, 11/26/23 at 12:45pm. ) Diet: Cardiac Activity: Increase activity as tolerated Patient Instructions: Heart Healthy Diet, Chest Pain Stoplight, Post Angiogram Home Care Instructions Discharge Date/Time: 11/18/23 17:47 Attestations Medical Necessity Statement*: Care not expected to cross 2 midnights. Time Spent in Patient Care*: less than 30 min Quality Metrics Clinical Quality Measures: [ No reported AMI, CVA or VTE this stay ] Coding Level of Care Code Acute Code for Chg Fwd
[2023-11-18 18:00] VITALS: BP 146/76; PULSE 65; RESP 16; TEMP 36.9; O2SAT 94
--- NOTE | 2023-11-18 19:02 | PC.NURSE ---
Patient alert, oriented, and in stable condition upon discharge. Discharge instructions reviewed and all questions answered. All IVs and monitoring equipment removed before discharge. Patient discharged with all personal belongings. Patient ambulated to vehicle accompanied by this nurse and family members.
== END 2023-11-18 17:47 | disposition home or self-care (01) ==
LOC: CCL 09:33 → ICU 12:21
PROVIDERS: Internal Medicine; PCP Internal Medicine; Visit Provider Internal Medicine
DX: I25.10 Atherosclerotic heart disease of native coronary artery without angina pectoris (principal); I25.84 Coronary atherosclerosis due to calcified coronary lesion; T82.855A Stenosis of coronary artery stent, initial encounter; G47.30 Sleep apnea, unspecified; E78.5 Hyperlipidemia, unspecified; Z82.49 Family history of ischemic heart disease and other diseases of the circulatory system; I10 Essential (primary) hypertension
CPT/HCPCS: 36415; 36416; 80048; 82962; 83735; 84484; 85025; 93005; 93454; 93571; 96374; 99152; 99153; C1769; C1887; C1894; J1644; J2250; J3010; J3490; J7030; Q0163; Q9967

== ENCOUNTER 2024-02-17 08:10 | Outpatient (RCR) | payer OTHER, SELFPAY | END 2024-03-11 23:59 | disposition home or self-care (01) | LOC: CR 08:10 | PROVIDERS: PCP Internal Medicine; Referring Provider Internal Medicine; Visit Provider Internal Medicine | DX: Z95.1 Presence of aortocoronary bypass graft (principal) | CPT/HCPCS: 93798 ==

== ENCOUNTER 2024-09-13 10:43 | Outpatient (CLI) | payer OTHER, SELFPAY ==
[2024-09-13 12:20] LABS: Cholesterol 137 mg/dL (0-200); HDL Cholesterol 36 mg/dL (60-100); Triglycerides 66 mg/dL (0-150)
== END 2024-09-13 10:44 | disposition home or self-care (01) ==
PROVIDERS: PCP Internal Medicine; Visit Provider Nurse Practitioner Family
DX: I10 Essential (primary) hypertension (principal)
CPT/HCPCS: 36415; 80061